=== PATIENT | male | born 1940 | race Caucasian/White ===

== ENCOUNTER 2017-10-04 15:09 | Inpatient (IN) ==
[2017-10-04] MEDS ORDERED: LEVOFLOXACIN INJ 750 MG in PREMIX 1 EACH IV STA (15:54)
[2017-10-04] MEDS ORDERED: ONDANSETRON 4 MG/2 ML VIAL IM STA (15:54)
[2017-10-04] MEDS ORDERED: methylPREDNISolone SOD SUC 125 MG/2 ML VIAL IV STA (15:54)
[2017-10-04] MEDS ORDERED: SODIUM CHLORIDE 0.9% 1,000 ML IV STA (15:54)
[2017-10-04] MEDS ORDERED: LOPERAMIDE 2 MG CAPSULE PO STA (15:57)
[2017-10-04] MEDS ORDERED: methylPREDNISolone SOD SUC 125 MG/2 ML VIAL ONE (16:14)
[2017-10-04] MEDS ORDERED: LOPERAMIDE 2 MG CAPSULE ONE (16:14)
[2017-10-04] MEDS ORDERED: ONDANSETRON 4 MG/2 ML VIAL ONE (16:14)
[2017-10-04 16:15] LABS: Basophils # 0.1 10*3/uL (0.0-0.2); Basophils % 0.3 % (0.0-0.8); Hematocrit 40.9 VOL% (42.0-52.0); Hemoglobin 14.1 GM/DL (14.0-18.0); Immature Granulocytes % 2.6 %; Immature Granulocytes Absolute 0.76 #; Lymphocytes # 0.4 10*3/uL (1.4-4.0); Lymphocytes % 1.5 % (21.2-54.2); Mean Corpuscular HGB Conc 34.5 GM/DL (32-36); Mean Corpuscular Hemoglobin 33 PG (27-34); Mean Corpuscular Volume 94.7 FL (87-102); Mean Platelet Volume 9.6 FL (9.6-12.0); Monocytes # 1.1 10*3/uL (0.11-0.8); Monocytes % 3.6 % (1.7-12.7); Neutrophils # 27.2 10*3/uL (1.4-7.4); Platelet Count 212 T/CUMM (130-400); Red Blood Count 4.32 MC/CUMM (3.8-5.5); Red Cell Distribution Width 13.1 % (9.3-17.3); White Blood Count 29.6 T/CUMM (4-12)
[2017-10-04] MEDS ORDERED: ONDANSETRON 4 MG/2 ML VIAL IV STA (16:22)
[2017-10-04 16:26] LABS: INR 1.1; PT Patient Result 11.6 SECS; Partial Thromboplastin Time 30.8 SECS (0-40)
[2017-10-04 16:44] LABS: Alanine Aminotransferase 20 U/L (16-61); Albumin 3.1 G/DL (3.4-5.0); Alkaline Phosphatase 64 U/L (45-117); Aspartate Amino Transferase 25 U/L (0-37); Blood Urea Nitrogen 39 MG/DL (7-18); Calcium 7.5 MG/DL (8.5-10.1); Free T4 (Free Thyroxine) 1.33 NG/DL (0.76-1.46); Glucose 127 MG/DL (74-106); Osmolality,Calculated 276.4 MOS/KG (273-304); Potassium 3.7 MMOL/L (3.5-5.1); Sodium 133 MMOL/L (136-145)
[2017-10-04] MEDS ORDERED: LEVOFLOXACIN INJ 150 ML IV ONE (16:44)
[2017-10-04 16:45] LABS: Troponin I Only 0.053 NG/ML (0.00-0.045)
[2017-10-04 17:05] LABS: Band Neutrophils 5 % (0-10); Lymphocytes 2 % (20-55); Segmented Neutrophils 91 % (50-85); Total Cells Counted 100
[2017-10-04 17:19] LABS: Apearance,Urine CLOUDY (Clear); Bilirubin,Urine Negative (Negative); Blood, Urine Moderate mg/dL (Negative); Glucose,Urine (UA) Negative (Negative); Hyaline Casts,Urine 1 /LPF (0-3); Ketones,Urine 5 mg/dL (Negative); Mucus,Urine Few /LPF (Occasional); Nitrite,Urine Negative (Negative); Protein,Urine 100 MG/DL; RBC,Urine 2 /HPF (0-4); Squamous Epithelial Cell,Urine Occasional /HPF (0-10); Urine Color Yellow (Yellow); Urine Specific Gravity 1.017 (1.001-1.035); Urine Urobilinogen < 2.0 EU/DL (0.2-1.0); WBC,Urine 3 /HPF (0-6)
[2017-10-04] MEDS ORDERED: ALBUTEROL 2.5 MG/3 ML NEB RESP TX PRN (17:41)
[2017-10-04] MEDS ORDERED: ZALEPLON 5 MG CAPSULE PO PRN (17:42)
[2017-10-04] MEDS ORDERED: PANTOPRAZOLE 40 MG VIAL IV STA (17:44)
[2017-10-04] MEDS ORDERED: AZTREONAM 2,000 MG in SYRINGE 1 EACH IV SCH (18:30)
[2017-10-04] MEDS ORDERED: SODIUM CHLORIDE 0.9% 2,250 ML IV ONE (18:30)
[2017-10-04] MEDS ORDERED: INFLUENZA VIRUS VACCINE 0.5 ML SYRINGE IM ONE (18:47)
[2017-10-04] MEDS ORDERED: PNEUMOCOCCAL VACCINE (13 VALENT) 0.5 ML SYRINGE IM ONE (18:47)
[2017-10-04] MEDS: ALBUTEROL/IPRATROPIUM 3 ML NEB RESP TX SCH (19:41)
[2017-10-04] MEDS ORDERED: VANCOMYCIN INJ 1,000 MG in SODIUM CHLORIDE 0.9% 250 ML IV SCH (20:30)
[2017-10-04] MEDS ORDERED: ALBUTEROL 2.5 MG/3 ML NEB RESP TX ONE (21:15)
[2017-10-04] MEDS ORDERED: MAGNESIUM SULF RIDER 1 GM in PREMIX 1 EACH IV ONE (21:15)
[2017-10-04] MEDS: SODIUM CHLORIDE 0.9% 1,000 ML IV SCH (21:27)
[2017-10-04] MEDS: methylPREDNISolone SOD SUC 125 MG/2 ML VIAL IV SCH (21:30)
[2017-10-04 21:40] LABS: ABG Base Excess -11.3 MMOL/L (-2.5-2.5); ABG HCO3 16.1 MMOL/L (20-26); ABG Oxygen Saturation 92.1 % (95-100); ABG PCO2 41.3 MM HG (35-48); ABG PO2 68.6 MM HG (80-95); ABG TCO2 17.3 MMOL/L (23-27); Allen Test Positive
[2017-10-04 21:44] LABS: ABG PH 7.208 (7.35-7.45)
[2017-10-04] MEDS: MONTELUKAST 10 MG TABLET PO SCH (21:44)
[2017-10-04] MEDS: ENOXAPARIN 40 MG/0.4 ML SYRINGE SUBCUT SCH (21:44)
[2017-10-04] MEDS: DOCUSATE SODIUM 100 MG CAPSULE PO SCH (21:44)
[2017-10-05] MEDS: ALBUTEROL/IPRATROPIUM 3 ML NEB RESP TX SCH ×4 (01:49→19:30)
[2017-10-05 04:07] LABS: Basophils # 0.1 10*3/uL (0.0-0.2); Basophils % 0.4 % (0.0-0.8); Hematocrit 38.6 VOL% (42.0-52.0); Hemoglobin 12.8 GM/DL (14.0-18.0); Immature Granulocytes % 9.9 %; Immature Granulocytes Absolute 2.24 #; Lymphocytes # 0.2 10*3/uL (1.4-4.0); Lymphocytes % 0.7 % (21.2-54.2); Mean Corpuscular HGB Conc 33.2 GM/DL (32-36); Mean Corpuscular Hemoglobin 33 PG (27-34); Mean Corpuscular Volume 98.5 FL (87-102); Mean Platelet Volume 10.4 FL (9.6-12.0); Monocytes # 0.5 10*3/uL (0.11-0.8); Neutrophils # 19.8 10*3/uL (1.4-7.4); Platelet Count 186 T/CUMM (130-400); Red Blood Count 3.92 MC/CUMM (3.8-5.5); Red Cell Distribution Width 13.4 % (9.3-17.3); White Blood Count 22.7 T/CUMM (4-12)
[2017-10-05 04:51] LABS: ABG Base Excess -12.2 MMOL/L (-2.5-2.5); ABG HCO3 16.9 MMOL/L (20-26); ABG Oxygen Saturation 93.7 % (95-100); ABG PCO2 51.2 MM HG (35-48); ABG PO2 75.7 MM HG (80-95); ABG TCO2 18.5 MMOL/L (23-27)
[2017-10-05] MEDS: SODIUM CHLORIDE 0.9% 1,000 ML IV SCH ×3 (04:54→13:41)
[2017-10-05] MEDS: methylPREDNISolone SOD SUC 125 MG/2 ML VIAL IV SCH ×4 (04:54→21:29)
[2017-10-05 04:55] LABS: ABG PH 7.136 (7.35-7.45)
[2017-10-05] MEDS ORDERED: SODIUM BICARBONATE 50 MEQ/50 ML SYRINGE IV ONE ×2 (04:59→05:00)
[2017-10-05 05:08] LABS: Albumin 2.3 G/DL (3.4-5.0); Bilirubin,Total 0.5 MG/DL (0.2-1.0); Calcium 6.9 MG/DL (8.5-10.1); Osmolality,Calculated 304.5 MOS/KG (273-304); Potassium 3.9 MMOL/L (3.5-5.1); Total Protein 4.8 G/DL (6.4-8.3)
[2017-10-05 05:24] LABS: Band Neutrophils 7 % (0-10); Burr Cells 1+; Hypochromasia Slight; Lymphocytes 1 % (20-55); Ovalocytes 1+; Platelet Estimate Normal; Segmented Neutrophils 91 % (50-85); Total Cells Counted 100
[2017-10-05] MEDS ORDERED: GLUCAGON 1 MG VIAL IM PRN (05:52)
[2017-10-05] MEDS ORDERED: DEXTROSE 50% 25 GM/50 ML VIAL IV PRN (05:52)
[2017-10-05] MEDS ORDERED: INSULIN REGULAR 100 UNIT/ML SUBCUT SCH (06:00)
[2017-10-05] MEDS ORDERED: INSULIN REGULAR 100 UNIT/ML SUBCUT ONE (08:41)
[2017-10-05] MEDS: INSULIN REGULAR 100 UNIT/ML SUBCUT SCH ×4 (08:43→20:35)
[2017-10-05] MEDS: DOCUSATE SODIUM 100 MG CAPSULE PO SCH ×2 (09:00→20:35)
[2017-10-05] MEDS: glipiZIDE 5 MG TABLET PO SCH (09:00)
[2017-10-05] MEDS: LINEZOLID INJ 600 MG in PREMIX 1 EACH IV SCH ×2 (09:00→20:40)
[2017-10-05 11:30] LABS: ABG Oxygen Saturation 99.1 % (95-100); ABG PCO2 56.3 MM HG (35-48); ABG TCO2 19.3 MMOL/L (23-27)
[2017-10-05] MEDS: THEOPHYLLINE ER (24 HR) 400 MG TABLET PO SCH (12:41)
[2017-10-05] MEDS: MEROPENEM 1,000 MG in SYRINGE 1 EACH IV SCH (12:45)
[2017-10-05] MEDS: ENOXAPARIN 40 MG/0.4 ML SYRINGE SUBCUT SCH (20:35)
[2017-10-05] MEDS: MONTELUKAST 10 MG TABLET PO SCH (20:35)
[2017-10-06] MEDS: MEROPENEM 1,000 MG in SYRINGE 1 EACH IV SCH ×2 (00:14→13:06)
[2017-10-06] MEDS: INSULIN REGULAR 100 UNIT/ML SUBCUT SCH ×7 (00:15→23:50)
[2017-10-06] MEDS: SODIUM CHLORIDE 0.9% 1,000 ML IV SCH ×3 (00:15→10:27)
[2017-10-06] MEDS: ALBUTEROL/IPRATROPIUM 3 ML NEB RESP TX SCH ×7 (00:27→23:53)
[2017-10-06 03:36] LABS: ABG Base Excess -6.6 MMOL/L (-2.5-2.5); ABG HCO3 20.4 MMOL/L (20-26); ABG Oxygen Saturation 95.9 % (95-100); ABG PCO2 46.3 MM HG (35-48); ABG PH 7.261 (7.35-7.45); ABG PO2 82.7 MM HG (80-95); ABG TCO2 21.8 MMOL/L (23-27); Allen Test Positive
[2017-10-06] MEDS: methylPREDNISolone SOD SUC 125 MG/2 ML VIAL IV SCH ×4 (04:28→22:36)
[2017-10-06 05:22] LABS: Basophils # 0.1 10*3/uL (0.0-0.2); Basophils % 0.2 % (0.0-0.8); Hematocrit 35.4 VOL% (42.0-52.0); Hemoglobin 11.7 GM/DL (14.0-18.0); Immature Granulocytes Absolute 0.21 #; Lymphocytes # 0.2 10*3/uL (1.4-4.0); Mean Corpuscular HGB Conc 33.1 GM/DL (32-36); Mean Corpuscular Hemoglobin 32 PG (27-34); Mean Corpuscular Volume 97.5 FL (87-102); Mean Platelet Volume 10.4 FL (9.6-12.0); Monocytes # 0.6 10*3/uL (0.11-0.8); Monocytes % 2.6 % (1.7-12.7); Neutrophils # 20.5 10*3/uL (1.4-7.4); Neutrophils % 95.2 % (38.7-73.9); Platelet Count 163 T/CUMM (130-400); Red Blood Count 3.63 MC/CUMM (3.8-5.5); Red Cell Distribution Width 13.7 % (9.3-17.3); White Blood Count 21.6 T/CUMM (4-12)
[2017-10-06 05:44] LABS: Band Neutrophils 5 % (0-10); Lymphocytes 1 % (20-55); Nucleated Red Blood Cells 1 (0-5); Segmented Neutrophils 93 % (50-85); Total Cells Counted 100
[2017-10-06 05:45] LABS: Burr Cells Slight; Giant Platelets Few; Hypochromasia 1+; Ovalocytes Slight; Platelet Estimate Normal
[2017-10-06] MEDS ORDERED: DILTIAZEM 50 MG/10 ML VIAL IV ONE ×2 (05:56→06:06)
[2017-10-06] MEDS ORDERED: DILTIAZEM 100 MG VIAL.ADD IV ONE ×2 (05:58→06:02)
[2017-10-06 06:00] LABS: Calcium 7.4 MG/DL (8.5-10.1); Magnesium 2.3 MG/DL (1.8-2.4); Osmolality,Calculated 298.6 MOS/KG (273-304); Potassium 3.5 MMOL/L (3.5-5.1)
[2017-10-06] MEDS: DILTIAZEM INJ 100 MG in SODIUM CHLORIDE 0.9% 100 ML IV SCH ×3 (06:06→22:15)
[2017-10-06] MEDS ORDERED: DIGOXIN 0.5 MG/2 ML AMP IV ONE ×2 (06:35→06:42)
[2017-10-06] MEDS ORDERED: MEPERIDINE 50 MG/1 ML VIAL ONE (08:31)
[2017-10-06] MEDS ORDERED: MIDAZOLAM 2 MG/2 ML VIAL ONE (08:31)
[2017-10-06] MEDS ORDERED: METOPROLOL TARTRATE 5 MG/5 ML VIAL IV ONE ×3 (08:32→09:41)
[2017-10-06] MEDS: ENOXAPARIN 80 MG/0.8 ML SYRINGE SUBCUT SCH ×2 (08:44→20:57)
[2017-10-06 09:15] LABS: Risk Ratio 2.53; VLDL CHOLESTEROL 16.4 MG/DL
[2017-10-06] MEDS ORDERED: MEPERIDINE 50 MG/1 ML VIAL IV ONE (09:41)
[2017-10-06] MEDS ORDERED: MIDAZOLAM 2 MG/2 ML VIAL IV ONE (09:41)
[2017-10-06] MEDS: DOCUSATE SODIUM 100 MG CAPSULE PO SCH ×2 (09:44→20:57)
[2017-10-06] MEDS: glipiZIDE 5 MG TABLET PO SCH (09:44)
[2017-10-06] MEDS: LINEZOLID INJ 600 MG in PREMIX 1 EACH IV SCH ×2 (09:54→20:56)
[2017-10-06] MEDS: THEOPHYLLINE ER (24 HR) 400 MG TABLET PO SCH (11:14)
[2017-10-06] MEDS ORDERED: LEVOFLOXACIN INJ 750 MG in PREMIX 1 EACH IV SCH (17:00)
[2017-10-06] MEDS: MONTELUKAST 10 MG TABLET PO SCH (20:57)
[2017-10-06] MEDS: ATORVASTATIN 10 MG TABLET PO SCH (20:57)
[2017-10-07] MEDS: MEROPENEM 1,000 MG in SYRINGE 1 EACH IV SCH ×2 (02:08→12:22)
[2017-10-07] MEDS: INSULIN REGULAR 100 UNIT/ML SUBCUT SCH ×5 (04:00→21:04)
[2017-10-07] MEDS: ALBUTEROL/IPRATROPIUM 3 ML NEB RESP TX SCH ×6 (04:12→23:20)
[2017-10-07] MEDS: methylPREDNISolone SOD SUC 125 MG/2 ML VIAL IV SCH ×4 (04:12→22:13)
[2017-10-07 05:11] LABS: Basophils # 0.1 10*3/uL (0.0-0.2); Basophils % 0.2 % (0.0-0.8); Hematocrit 36.9 VOL% (42.0-52.0); Hemoglobin 12.3 GM/DL (14.0-18.0); Immature Granulocytes % 0.7 %; Immature Granulocytes Absolute 0.18 #; Lymphocytes # 0.2 10*3/uL (1.4-4.0); Lymphocytes % 0.9 % (21.2-54.2); Mean Corpuscular HGB Conc 33.3 GM/DL (32-36); Mean Corpuscular Hemoglobin 32 PG (27-34); Mean Corpuscular Volume 96.9 FL (87-102); Mean Platelet Volume 10.5 FL (9.6-12.0); Monocytes # 0.3 10*3/uL (0.11-0.8); Monocytes % 1.3 % (1.7-12.7); NRBC # 0.05 10*3/uL; Neutrophils # 23.9 10*3/uL (1.4-7.4); Neutrophils % 96.9 % (38.7-73.9); Platelet Count 231 T/CUMM (130-400); Red Blood Count 3.81 MC/CUMM (3.8-5.5); Red Cell Distribution Width 13.9 % (9.3-17.3); White Blood Count 24.7 T/CUMM (4-12)
[2017-10-07 05:40] LABS: Magnesium 2.5 MG/DL (1.8-2.4); Osmolality,Calculated 291.3 MOS/KG (273-304); Potassium 3.9 MMOL/L (3.5-5.1)
[2017-10-07 05:59] LABS: Band Neutrophils 1 % (0-10); Hypochromasia Slight; Lymphocytes 1 % (20-55); Ovalocytes Slight; Platelet Estimate Adequate; Segmented Neutrophils 97 % (50-85); Total Cells Counted 100
[2017-10-07 06:00] LABS: Burr Cells Slight; Giant Platelets Few
[2017-10-07] MEDS ORDERED: MEPERIDINE 50 MG/1 ML VIAL IM ONE (07:00)
[2017-10-07] MEDS ORDERED: PROMETHAZINE 25 MG/1 ML VIAL IM ONE (07:00)
[2017-10-07] MEDS ORDERED: LIDOCAINE 1% 20 ML VIAL MISC INJ ONE (07:30)
[2017-10-07] MEDS ORDERED: LIDOCAINE 2% VISCOUS 100 ML BOTTLE SWISH/SPIT ONE (07:30)
[2017-10-07] MEDS ORDERED: MIDAZOLAM 2 MG/2 ML VIAL IV ONE ×2 (07:30→09:35)
[2017-10-07] MEDS ORDERED: LIDOCAINE 2% 20 ML VIAL RESP TX ONE (07:30)
[2017-10-07] MEDS: LINEZOLID INJ 600 MG in PREMIX 1 EACH IV SCH ×2 (09:30→21:04)
[2017-10-07] MEDS: ENOXAPARIN 80 MG/0.8 ML SYRINGE SUBCUT SCH ×2 (09:30→21:03)
[2017-10-07] MEDS: DOCUSATE SODIUM 100 MG CAPSULE PO SCH ×2 (09:45→21:03)
[2017-10-07] MEDS: glipiZIDE 5 MG TABLET PO SCH (09:45)
[2017-10-07] MEDS ORDERED: DILTIAZEM 30 MG TABLET PO SCH (10:23)
[2017-10-07] MEDS ORDERED: DIGOXIN 0.5 MG/2 ML AMP IV ONE (10:24)
[2017-10-07] MEDS: NEBIVOLOL 5 MG TABLET PO SCH ×2 (10:54→21:02)
[2017-10-07] MEDS: DILTIAZEM CD 120 MG CAPSULE PO SCH (10:55)
[2017-10-07] MEDS: DILTIAZEM INJ 100 MG in SODIUM CHLORIDE 0.9% 100 ML IV SCH (10:56)
[2017-10-07] MEDS: THEOPHYLLINE ER (24 HR) 400 MG TABLET PO SCH (11:00)
[2017-10-07] MEDS: ATORVASTATIN 10 MG TABLET PO SCH (21:03)
[2017-10-07] MEDS: MONTELUKAST 10 MG TABLET PO SCH (21:03)
[2017-10-08] MEDS: MEROPENEM 1,000 MG in SYRINGE 1 EACH IV SCH ×2 (03:02→13:41)
[2017-10-08] MEDS: ALBUTEROL/IPRATROPIUM 3 ML NEB RESP TX SCH ×6 (03:25→23:35)
[2017-10-08] MEDS: methylPREDNISolone SOD SUC 125 MG/2 ML VIAL IV SCH ×4 (04:30→21:59)
[2017-10-08 05:06] LABS: Basophils % 0.2 % (0.0-0.8); Hematocrit 30.8 VOL% (42.0-52.0); Immature Granulocytes % 0.9 %; Immature Granulocytes Absolute 0.11 #; Lymphocytes # 0.2 10*3/uL (1.4-4.0); Lymphocytes % 1.7 % (21.2-54.2); Mean Corpuscular HGB Conc 33.1 GM/DL (32-36); Mean Corpuscular Hemoglobin 32 PG (27-34); Mean Corpuscular Volume 96.6 FL (87-102); Mean Platelet Volume 10.1 FL (9.6-12.0); Monocytes # 0.3 10*3/uL (0.11-0.8); Monocytes % 2.5 % (1.7-12.7); NRBC # 0.02 10*3/uL; Neutrophils % 94.7 % (38.7-73.9); Red Blood Count 3.19 MC/CUMM (3.8-5.5); Red Cell Distribution Width 13.7 % (9.3-17.3)
[2017-10-08 05:13] LABS: Hemoglobin 10.2 GM/DL (14.0-18.0); Platelet Count 182 T/CUMM (130-400); White Blood Count 11.6 T/CUMM (4-12)
[2017-10-08 05:29] LABS: Band Neutrophils 1 % (0-10); Hypochromasia 1+; Lymphocytes 1 % (20-55); Ovalocytes Slight; Platelet Estimate Normal; Segmented Neutrophils 97 % (50-85); Total Cells Counted 100
[2017-10-08 05:32] LABS: Calcium 7.7 MG/DL (8.5-10.1); Magnesium 2.6 MG/DL (1.8-2.4); Potassium 4.4 MMOL/L (3.5-5.1)
[2017-10-08] MEDS: DILTIAZEM INJ 100 MG in SODIUM CHLORIDE 0.9% 100 ML IV SCH (06:36)
[2017-10-08] MEDS: ENOXAPARIN 80 MG/0.8 ML SYRINGE SUBCUT SCH (09:00)
[2017-10-08] MEDS: INSULIN REGULAR 100 UNIT/ML SUBCUT SCH ×4 (09:00→20:52)
[2017-10-08] MEDS: NEBIVOLOL 5 MG TABLET PO SCH (09:01)
[2017-10-08] MEDS: glipiZIDE 5 MG TABLET PO SCH (09:02)
[2017-10-08] MEDS: DOCUSATE SODIUM 100 MG CAPSULE PO SCH ×2 (09:02→20:53)
[2017-10-08] MEDS: LINEZOLID INJ 600 MG in PREMIX 1 EACH IV SCH (09:02)
[2017-10-08] MEDS: DILTIAZEM CD 120 MG CAPSULE PO SCH (09:02)
[2017-10-08] MEDS: THEOPHYLLINE ER (24 HR) 400 MG TABLET PO SCH (11:14)
[2017-10-08] MEDS: LEVOFLOXACIN INJ 750 MG in PREMIX 1 EACH IV SCH (11:14)
[2017-10-08] MEDS: ASPIRIN EC 81 MG TABLET PO SCH (13:41)
[2017-10-08] MEDS: APIXABAN 5 MG TABLET PO SCH (20:53)
[2017-10-08] MEDS: MONTELUKAST 10 MG TABLET PO SCH (20:54)
[2017-10-08] MEDS: ATORVASTATIN 10 MG TABLET PO SCH (20:54)
[2017-10-09] MEDS: MEROPENEM 1,000 MG in SYRINGE 1 EACH IV SCH ×2 (02:24→13:08)
[2017-10-09] MEDS: ALBUTEROL/IPRATROPIUM 3 ML NEB RESP TX SCH ×6 (02:45→23:26)
[2017-10-09] MEDS: methylPREDNISolone SOD SUC 125 MG/2 ML VIAL IV SCH ×5 (04:34→21:21)
[2017-10-09 04:37] LABS: Basophils % 0.1 % (0.0-0.8); Hemoglobin 9.4 GM/DL (14.0-18.0); Immature Granulocytes % 1.7 %; Immature Granulocytes Absolute 0.13 #; Lymphocytes # 0.2 10*3/uL (1.4-4.0); Lymphocytes % 2.7 % (21.2-54.2); Mean Corpuscular HGB Conc 33.6 GM/DL (32-36); Mean Corpuscular Hemoglobin 32 PG (27-34); Mean Corpuscular Volume 96.2 FL (87-102); Mean Platelet Volume 10.4 FL (9.6-12.0); Monocytes # 0.2 10*3/uL (0.11-0.8); Monocytes % 2.5 % (1.7-12.7); Neutrophils # 7.1 10*3/uL (1.4-7.4); Platelet Count 186 T/CUMM (130-400); Red Blood Count 2.91 MC/CUMM (3.8-5.5); Red Cell Distribution Width 13.7 % (9.3-17.3); White Blood Count 7.7 T/CUMM (4-12)
[2017-10-09 05:28] LABS: Band Neutrophils 1 % (0-10); Giant Platelets Few; Hypochromasia 1+; Lymphocytes 2 % (20-55); Ovalocytes Slight; Platelet Estimate Normal; Segmented Neutrophils 96 % (50-85); Total Cells Counted 100
[2017-10-09 05:45] LABS: Calcium 7.5 MG/DL (8.5-10.1); Magnesium 2.4 MG/DL (1.8-2.4); Osmolality,Calculated 303.8 MOS/KG (273-304); Potassium 4.7 MMOL/L (3.5-5.1)
[2017-10-09 07:24] LABS: ABG PH 7.183 (7.35-7.45)
[2017-10-09] MEDS: DILTIAZEM CD 120 MG CAPSULE PO SCH (08:23)
[2017-10-09] MEDS: APIXABAN 5 MG TABLET PO SCH ×2 (08:24→21:20)
[2017-10-09] MEDS: glipiZIDE 5 MG TABLET PO SCH (08:24)
[2017-10-09] MEDS: NEBIVOLOL 5 MG TABLET PO SCH (08:24)
[2017-10-09] MEDS: INSULIN REGULAR 100 UNIT/ML SUBCUT SCH ×4 (08:24→21:21)
[2017-10-09] MEDS: ASPIRIN EC 81 MG TABLET PO SCH (08:24)
[2017-10-09] MEDS: DOCUSATE SODIUM 100 MG CAPSULE PO SCH ×2 (08:24→21:20)
[2017-10-09] MEDS: LEVOFLOXACIN INJ 750 MG in PREMIX 1 EACH IV SCH ×2 (08:25→09:03)
[2017-10-09] MEDS ORDERED: DILTIAZEM CD 180 MG CAPSULE PO SCH (09:00)
[2017-10-09] MEDS: THEOPHYLLINE ER (24 HR) 400 MG TABLET PO SCH (12:08)
[2017-10-09] MEDS: ATORVASTATIN 10 MG TABLET PO SCH (21:20)
[2017-10-09] MEDS: MONTELUKAST 10 MG TABLET PO SCH (21:20)
[2017-10-10] MEDS: MEROPENEM 1,000 MG in SYRINGE 1 EACH IV SCH (01:25)
[2017-10-10] MEDS: ALBUTEROL/IPRATROPIUM 3 ML NEB RESP TX SCH ×3 (02:52→11:59)
[2017-10-10] MEDS: methylPREDNISolone SOD SUC 125 MG/2 ML VIAL IV SCH ×2 (04:08→09:14)
[2017-10-10 05:38] LABS: Basophils % 0.1 % (0.0-0.8); Hematocrit 27.5 VOL% (42.0-52.0); Hemoglobin 9.2 GM/DL (14.0-18.0); Immature Granulocytes % 1.4 %; Lymphocytes # 0.3 10*3/uL (1.4-4.0); Lymphocytes % 3.5 % (21.2-54.2); Mean Corpuscular HGB Conc 33.5 GM/DL (32-36); Mean Corpuscular Hemoglobin 32 PG (27-34); Mean Corpuscular Volume 95.5 FL (87-102); Mean Platelet Volume 9.8 FL (9.6-12.0); Monocytes # 0.3 10*3/uL (0.11-0.8); Monocytes % 3.5 % (1.7-12.7); Neutrophils # 6.4 10*3/uL (1.4-7.4); Neutrophils % 91.5 % (38.7-73.9); Platelet Count 196 T/CUMM (130-400); Red Blood Count 2.88 MC/CUMM (3.8-5.5); Red Cell Distribution Width 13.4 % (9.3-17.3); White Blood Count 7.1 T/CUMM (4-12)
[2017-10-10 06:14] LABS: Calcium 7.6 MG/DL (8.5-10.1); Magnesium 2.5 MG/DL (1.8-2.4); Osmolality,Calculated 302.1 MOS/KG (273-304); Potassium 4.5 MMOL/L (3.5-5.1)
[2017-10-10 06:17] LABS: Calcium 7.4 MG/DL (8.5-10.1); Potassium 4.5 MMOL/L (3.5-5.1)
[2017-10-10 08:29] VITALS: BP 144/68
[2017-10-10] MEDS: NEBIVOLOL 5 MG TABLET PO SCH (09:13)
[2017-10-10] MEDS: APIXABAN 5 MG TABLET PO SCH (09:14)
[2017-10-10] MEDS: DILTIAZEM CD 120 MG CAPSULE PO SCH (09:14)
[2017-10-10] MEDS: DOCUSATE SODIUM 100 MG CAPSULE PO SCH (09:14)
[2017-10-10] MEDS: ASPIRIN EC 81 MG TABLET PO SCH (09:14)
[2017-10-10] MEDS: glipiZIDE 5 MG TABLET PO SCH (09:14)
[2017-10-10] MEDS: INSULIN REGULAR 100 UNIT/ML SUBCUT SCH (09:14)
[2017-10-10] MEDS: LEVOFLOXACIN INJ 750 MG in PREMIX 1 EACH IV SCH (09:15)
[2017-10-10] MEDS: THEOPHYLLINE ER (24 HR) 400 MG TABLET PO SCH (12:00)
== END 2017-10-10 12:49 | disposition home or self-care (01) | DRG 871 ==
LOC: N.ED 15:09 → N.EDINP 17:08 → SUATTDRO 17:08 → N.ICU 18:45 → N.TELEN 10-07 14:46
PROVIDERS: ADMIT Internal Medicine Infectious Disease; ATTEND Internal Medicine

== ENCOUNTER 2018-12-31 17:49 | Inpatient (IN) ==
[2018-12-31] MEDS ORDERED: SODIUM CHLORIDE 0.9% 1,000 ML IV STA (19:04)
[2018-12-31 19:45] LABS: Basophils % 0.3 % (0.0-0.8); Eosinophils # 0.5 10*3/uL (0.0-0.87); Eosinophils % 4.4 % (0.00-10.9); Hematocrit 34.8 VOL% (42.0-52.0); Hemoglobin 11.1 GM/DL (14.0-18.0); Immature Granulocytes % 0.9 %; Lymphocytes # 0.6 10*3/uL (1.4-4.0); Lymphocytes % 5.1 % (21.2-54.2); Mean Corpuscular HGB Conc 31.9 GM/DL (32-36); Mean Corpuscular Hemoglobin 32 PG (27-34); Mean Corpuscular Volume 99.4 FL (87-102); Mean Platelet Volume 9.3 FL (9.6-12.0); Monocytes % 8.4 % (1.7-12.7); Neutrophils # 9.3 10*3/uL (1.4-7.4); Neutrophils % 80.9 % (38.7-73.9); Platelet Count 320 T/CUMM (130-400); Red Cell Distribution Width 12.9 % (9.3-17.3); White Blood Count 11.5 T/CUMM (4-12)
[2018-12-31 19:51] LABS: Alanine Aminotransferase 19 U/L (16-61); Albumin 3.2 G/DL (3.4-5.0); Alkaline Phosphatase 105 U/L (45-117); Aspartate Amino Transferase 13 U/L (0-37); Bilirubin,Total < 0.39 MG/DL (0.2-1.0); Blood Urea Nitrogen 32 MG/DL (7-18); Calcium 8.3 MG/DL (8.5-10.1); Glucose 128 MG/DL (74-106); Osmolality,Calculated 281.8 MOS/KG (273-304); Potassium 4.3 MMOL/L (3.5-5.1); Sodium 137 MMOL/L (136-145); Total Protein 6.1 G/DL (6.4-8.3)
[2018-12-31 20:02] LABS: Apearance,Urine CLEAR (Clear); Bilirubin,Urine Negative (Negative); Blood, Urine Negative (Negative); Glucose,Urine (UA) 50 mg/dL (Negative); Ketones,Urine Negative (Negative); Mucus,Urine Occasional /LPF (Occasional); Nitrite,Urine Negative (Negative); Protein,Urine Negative; RBC,Urine 1 /HPF (0-4); Squamous Epithelial Cell,Urine Occasional /HPF (0-10); Urine Color Yellow (Yellow); Urine Urobilinogen < 2.0 EU/DL (0.2-1.0); WBC,Urine 2 /HPF (0-6)
[2018-12-31] MEDS ORDERED: cefTRIAXone 1,000 MG in SODIUM CHLORIDE 0.9% 100 ML IV STA (20:49)
[2018-12-31] MEDS ORDERED: AZITHROMYCIN 250 MG TABLET PO STA (20:49)
[2018-12-31] MEDS ORDERED: DEXTROSE 50% 25 GM/50 ML SYRINGE IV PRN (21:47)
[2018-12-31] MEDS ORDERED: ONDANSETRON 4 MG/2 ML VIAL IV PRN (21:47)
[2018-12-31] MEDS ORDERED: GLUCAGON 1 MG VIAL IM PRN (21:47)
[2018-12-31] MEDS ORDERED: METHOCARBAMOL 500 MG TABLET PO PRN (21:53)
[2018-12-31] MEDS ORDERED: LEVOFLOXACIN INJ 750 MG in PREMIX 1 EACH IV SCH (22:00)
[2018-12-31] MEDS: INSULIN REGULAR 100 UNIT/ML SUBCUT SCH (23:03)
[2018-12-31] MEDS: PIPERACILLIN/TAZOBACTAM 3,375 MG in SODIUM CHLORIDE 0.9% 100 ML IV SCH (23:16)
[2018-12-31] MEDS: APIXABAN 5 MG TABLET PO SCH (23:17)
[2019-01-01] MEDS: ALBUTEROL/IPRATROPIUM 3 ML NEB RESP TX SCH ×4 (01:55→19:36)
[2019-01-01] MEDS: PIPERACILLIN/TAZOBACTAM 3,375 MG in SODIUM CHLORIDE 0.9% 100 ML IV SCH ×3 (06:06→20:47)
[2019-01-01 07:02] LABS: Basophils # 0.1 10*3/uL (0.0-0.2); Basophils % 0.5 % (0.0-0.8); Eosinophils # 0.5 10*3/uL (0.0-0.87); Eosinophils % 3.5 % (0.00-10.9); Hematocrit 38.3 VOL% (42.0-52.0); Immature Granulocytes % 0.9 %; Immature Granulocytes Absolute 0.13 #; Lymphocytes # 1.2 10*3/uL (1.4-4.0); Lymphocytes % 8.2 % (21.2-54.2); Mean Corpuscular HGB Conc 31.3 GM/DL (32-36); Mean Corpuscular Hemoglobin 32 PG (27-34); Mean Corpuscular Volume 101.3 FL (87-102); Mean Platelet Volume 9.2 FL (9.6-12.0); Monocytes # 1.1 10*3/uL (0.11-0.8); Monocytes % 7.4 % (1.7-12.7); Neutrophils # 11.7 10*3/uL (1.4-7.4); Neutrophils % 79.5 % (38.7-73.9); Platelet Count 371 T/CUMM (130-400); Red Blood Count 3.78 MC/CUMM (3.8-5.5); Red Cell Distribution Width 12.8 % (9.3-17.3); White Blood Count 14.7 T/CUMM (4-12)
[2019-01-01 07:38] LABS: Albumin 3.2 G/DL (3.4-5.0); Bilirubin,Total 0.4 MG/DL (0.2-1.0); Calcium 8.5 MG/DL (8.5-10.1); Potassium 4.4 MMOL/L (3.5-5.1); Total Protein 6.6 G/DL (6.4-8.3)
[2019-01-01] MEDS: metFORMIN 500 MG TABLET PO SCH ×2 (09:41→17:18)
[2019-01-01] MEDS: ATORVASTATIN 10 MG TABLET PO SCH (09:41)
[2019-01-01] MEDS: PANTOPRAZOLE 40 MG TABLET PO SCH (09:41)
[2019-01-01] MEDS: INSULIN REGULAR 100 UNIT/ML SUBCUT SCH ×4 (09:41→22:14)
[2019-01-01] MEDS: DILTIAZEM CD 180 MG CAPSULE PO SCH (09:42)
[2019-01-01] MEDS: glipiZIDE 5 MG TABLET PO SCH (09:42)
[2019-01-01] MEDS: APIXABAN 5 MG TABLET PO SCH ×2 (09:42→20:47)
[2019-01-01] MEDS: acetaZOLAMIDE 250 MG TABLET PO SCH ×2 (09:43→20:46)
[2019-01-01] MEDS: LEVOFLOXACIN INJ 750 MG in PREMIX 1 EACH IV SCH (09:43)
[2019-01-01] MEDS: THEOPHYLLINE ER (24 HR) 200 MG CAPSULE PO SCH (13:19)
[2019-01-01] MEDS: ACETAMINOPHEN 325 MG TABLET PO PRN (17:18)
[2019-01-01] MEDS: CYCLOBENZAPRINE 10 MG TABLET PO SCH ×2 (17:18→20:46)
[2019-01-01] MEDS ORDERED: LEVALBUTEROL 0.31 MG/3 ML NEB RESP TX ONE (18:59)
[2019-01-01] MEDS: NAPROXEN 250 MG TABLET PO SCH (20:46)
[2019-01-02] MEDS: ALBUTEROL/IPRATROPIUM 3 ML NEB RESP TX SCH ×4 (01:25→19:12)
[2019-01-02] MEDS: PIPERACILLIN/TAZOBACTAM 3,375 MG in SODIUM CHLORIDE 0.9% 100 ML IV SCH ×3 (05:15→20:27)
[2019-01-02 05:45] LABS: Basophils % 0.2 % (0.0-0.8); Eosinophils # 0.1 10*3/uL (0.0-0.87); Eosinophils % 0.8 % (0.00-10.9); Hematocrit 35.8 VOL% (42.0-52.0); Hemoglobin 11.3 GM/DL (14.0-18.0); Immature Granulocytes % 0.5 %; Immature Granulocytes Absolute 0.06 #; Lymphocytes # 0.7 10*3/uL (1.4-4.0); Lymphocytes % 5.1 % (21.2-54.2); Mean Corpuscular HGB Conc 31.6 GM/DL (32-36); Mean Corpuscular Hemoglobin 32 PG (27-34); Mean Corpuscular Volume 100.6 FL (87-102); Mean Platelet Volume 9.2 FL (9.6-12.0); Monocytes % 7.6 % (1.7-12.7); Neutrophils # 11.2 10*3/uL (1.4-7.4); Neutrophils % 85.8 % (38.7-73.9); Platelet Count 328 T/CUMM (130-400); Red Blood Count 3.56 MC/CUMM (3.8-5.5); Red Cell Distribution Width 12.9 % (9.3-17.3)
[2019-01-02 06:10] LABS: % Iron Saturation 17.1 % (18-50); Ferritin 19.5 ng/ml (26-388)
[2019-01-02 06:19] LABS: Folate > 24.0 NG/ML (5.4-24.0); Vitamin B12 1180 PG/ML (211-911)
[2019-01-02] MEDS: INSULIN REGULAR 100 UNIT/ML SUBCUT SCH ×4 (07:29→23:11)
[2019-01-02] MEDS: glipiZIDE 5 MG TABLET PO SCH (07:44)
[2019-01-02] MEDS: metFORMIN 500 MG TABLET PO SCH ×2 (07:44→16:49)
[2019-01-02 08:25] LABS: Sedimentation Rate-Westergren 37 MM/HR (0-20)
[2019-01-02] MEDS: LEVOFLOXACIN INJ 750 MG in PREMIX 1 EACH IV SCH (09:28)
[2019-01-02] MEDS: CYCLOBENZAPRINE 10 MG TABLET PO SCH ×3 (09:29→20:28)
[2019-01-02] MEDS: NAPROXEN 250 MG TABLET PO SCH ×2 (09:29→20:28)
[2019-01-02] MEDS: PANTOPRAZOLE 40 MG TABLET PO SCH (09:29)
[2019-01-02] MEDS: APIXABAN 5 MG TABLET PO SCH ×2 (09:30→20:28)
[2019-01-02] MEDS: DILTIAZEM CD 180 MG CAPSULE PO SCH (09:30)
[2019-01-02] MEDS: ATORVASTATIN 10 MG TABLET PO SCH (09:30)
[2019-01-02] MEDS: MULTIVITAMIN (BEROCCA) TABLET PO SCH (09:30)
[2019-01-02] MEDS: acetaZOLAMIDE 250 MG TABLET PO SCH ×2 (09:31→20:28)
[2019-01-02] MEDS: THEOPHYLLINE ER (24 HR) 200 MG CAPSULE PO SCH (11:53)
[2019-01-02] MEDS: methylPREDNISolone SOD SUC 40 MG/1 ML VIAL IV SCH ×2 (11:53→22:28)
[2019-01-02] MEDS: FLUCONAZOLE INJ 100 MG in IV BAG 1 EACH IV SCH (13:34)
[2019-01-02] MEDS: ACETAMINOPHEN 325 MG TABLET PO PRN (18:05)
[2019-01-03] MEDS: ALBUTEROL/IPRATROPIUM 3 ML NEB RESP TX SCH ×4 (00:27→19:53)
[2019-01-03] MEDS: PIPERACILLIN/TAZOBACTAM 3,375 MG in SODIUM CHLORIDE 0.9% 100 ML IV SCH ×2 (05:15→14:09)
[2019-01-03] MEDS: methylPREDNISolone SOD SUC 40 MG/1 ML VIAL IV SCH (06:42)
[2019-01-03] MEDS: MULTIVITAMIN (BEROCCA) TABLET PO SCH (09:42)
[2019-01-03] MEDS: glipiZIDE 5 MG TABLET PO SCH (09:42)
[2019-01-03] MEDS: metFORMIN 500 MG TABLET PO SCH ×2 (09:42→17:48)
[2019-01-03] MEDS: APIXABAN 5 MG TABLET PO SCH ×2 (09:42→20:29)
[2019-01-03] MEDS: PANTOPRAZOLE 40 MG TABLET PO SCH (09:42)
[2019-01-03] MEDS: DILTIAZEM CD 180 MG CAPSULE PO SCH (09:43)
[2019-01-03] MEDS: NAPROXEN 250 MG TABLET PO SCH ×2 (09:43→20:28)
[2019-01-03] MEDS: CYCLOBENZAPRINE 10 MG TABLET PO SCH ×3 (09:43→20:29)
[2019-01-03] MEDS: acetaZOLAMIDE 250 MG TABLET PO SCH ×2 (09:47→20:28)
[2019-01-03] MEDS: INSULIN REGULAR 100 UNIT/ML SUBCUT SCH ×4 (09:48→21:30)
[2019-01-03] MEDS: THEOPHYLLINE ER (24 HR) 200 MG CAPSULE PO SCH (12:59)
[2019-01-03] MEDS: FLUCONAZOLE INJ 100 MG in IV BAG 1 EACH IV SCH (12:59)
[2019-01-03] MEDS: MEROPENEM 500 MG in SODIUM CHLORIDE 0.9% 100 ML IV SCH (15:10)
[2019-01-03] MEDS: VANCOMYCIN INJ 1,250 MG in SODIUM CHLORIDE 0.9% 250 ML IV SCH (18:38)
[2019-01-04] MEDS: ALBUTEROL/IPRATROPIUM 3 ML NEB RESP TX SCH ×4 (00:12→19:12)
[2019-01-04] MEDS: MEROPENEM 500 MG in SODIUM CHLORIDE 0.9% 100 ML IV SCH ×2 (02:35→16:05)
[2019-01-04 05:28] LABS: Basophils % 0.1 % (0.0-0.8); Eosinophils % 0.1 % (0.00-10.9); Hematocrit 31.5 VOL% (42.0-52.0); Hemoglobin 9.7 GM/DL (14.0-18.0); Immature Granulocytes % 0.9 %; Immature Granulocytes Absolute 0.16 #; Lymphocytes # 0.4 10*3/uL (1.4-4.0); Lymphocytes % 2.1 % (21.2-54.2); Mean Corpuscular HGB Conc 30.8 GM/DL (32-36); Mean Corpuscular Hemoglobin 32 PG (27-34); Mean Corpuscular Volume 102.6 FL (87-102); Mean Platelet Volume 9.6 FL (9.6-12.0); Monocytes # 0.9 10*3/uL (0.11-0.8); Monocytes % 4.8 % (1.7-12.7); Neutrophils # 16.6 10*3/uL (1.4-7.4); Platelet Count 328 T/CUMM (130-400); Red Blood Count 3.07 MC/CUMM (3.8-5.5); Red Cell Distribution Width 13.3 % (9.3-17.3); White Blood Count 18.1 T/CUMM (4-12)
[2019-01-04 05:38] LABS: Osmolality,Calculated 292.4 MOS/KG (273-304); Potassium 4.4 MMOL/L (3.5-5.1)
[2019-01-04 05:51] LABS: Albumin 2.6 G/DL (3.4-5.0); Bilirubin,Total 0.4 MG/DL (0.2-1.0); Osmolality,Calculated 291.3 MOS/KG (273-304); Potassium 4.2 MMOL/L (3.5-5.1); Total Protein 5.4 G/DL (6.4-8.3)
[2019-01-04 06:01] LABS: Lymphocytes 3 % (20-55); Macrocytosis Slight; Segmented Neutrophils 93 % (50-85); Total Cells Counted 100
[2019-01-04 06:02] LABS: Platelet Estimate Normal
[2019-01-04] MEDS: INSULIN REGULAR 100 UNIT/ML SUBCUT SCH ×4 (10:02→22:00)
[2019-01-04] MEDS: MULTIVITAMIN (BEROCCA) TABLET PO SCH (10:10)
[2019-01-04] MEDS: metFORMIN 500 MG TABLET PO SCH ×2 (10:10→17:02)
[2019-01-04] MEDS: predniSONE 20 MG TABLET PO SCH (10:10)
[2019-01-04] MEDS: CYCLOBENZAPRINE 10 MG TABLET PO SCH ×3 (10:10→21:58)
[2019-01-04] MEDS: acetaZOLAMIDE 250 MG TABLET PO SCH ×2 (10:10→21:59)
[2019-01-04] MEDS: NAPROXEN 250 MG TABLET PO SCH ×2 (10:10→21:59)
[2019-01-04] MEDS: PANTOPRAZOLE 40 MG TABLET PO SCH (10:11)
[2019-01-04] MEDS: DILTIAZEM CD 180 MG CAPSULE PO SCH (10:11)
[2019-01-04] MEDS: APIXABAN 5 MG TABLET PO SCH ×2 (10:11→21:58)
[2019-01-04] MEDS: glipiZIDE 5 MG TABLET PO SCH (10:11)
[2019-01-04 10:36] LABS: Hemoglobin A1 (Alkaline) 97.7 % (96.5-98.5); Hemoglobin A2 (Alkaline) 2.3 % (1.5-3.5)
[2019-01-04 10:42] LABS: Albumin (SPE) 3.6 G/DL (3.2-5.3); Albumin (SPE) Rel % 64.8 %; Alpha 1 (SPE) 0.3 G/DL (0.1-0.4); Alpha 1 (SPE) Rel % 4.7 %; Alpha 2 (SPE) 0.7 G/DL (0.4-1.0); Alpha 2 (SPE) Rel % 13.4 %; Beta (SPE) 0.6 G/DL (0.5-1.1); Beta (SPE) Rel % 10.6 %; Gamma (SPE) 0.4 G/DL (0.7-1.7); Gamma (SPE) Rel % 6.5 %; Total Protein (Chem) 5.5 G/DL (6.4-8.3)
[2019-01-04] MEDS: FLUCONAZOLE INJ 100 MG in IV BAG 1 EACH IV SCH (12:28)
[2019-01-04] MEDS: THEOPHYLLINE ER (24 HR) 200 MG CAPSULE PO SCH (12:29)
[2019-01-04] MEDS: VANCOMYCIN INJ 1,250 MG in SODIUM CHLORIDE 0.9% 250 ML IV SCH (18:38)
[2019-01-05] MEDS: ALBUTEROL/IPRATROPIUM 3 ML NEB RESP TX SCH ×4 (00:50→21:50)
[2019-01-05] MEDS: MEROPENEM 500 MG in SODIUM CHLORIDE 0.9% 100 ML IV SCH ×2 (02:25→13:50)
[2019-01-05 05:13] LABS: Basophils % 0.1 % (0.0-0.8); Hemoglobin 8.9 GM/DL (14.0-18.0); Immature Granulocytes % 0.6 %; Immature Granulocytes Absolute 0.08 #; Lymphocytes # 0.3 10*3/uL (1.4-4.0); Mean Corpuscular HGB Conc 30.7 GM/DL (32-36); Mean Corpuscular Hemoglobin 32 PG (27-34); Mean Corpuscular Volume 103.2 FL (87-102); Mean Platelet Volume 9.5 FL (9.6-12.0); Monocytes # 0.5 10*3/uL (0.11-0.8); Monocytes % 3.5 % (1.7-12.7); Neutrophils # 12.7 10*3/uL (1.4-7.4); Neutrophils % 93.8 % (38.7-73.9); Platelet Count 286 T/CUMM (130-400); Red Blood Count 2.81 MC/CUMM (3.8-5.5); Red Cell Distribution Width 13.3 % (9.3-17.3); White Blood Count 13.6 T/CUMM (4-12)
[2019-01-05 05:40] LABS: Hypochromasia 1+; Lymphocytes 1 % (20-55); Platelet Estimate Adequate; Segmented Neutrophils 99 % (50-85); Total Cells Counted 100
[2019-01-05 05:41] LABS: Macrocytosis Slight
[2019-01-05 05:44] LABS: Calcium 8.5 MG/DL (8.5-10.1); Osmolality,Calculated 295.7 MOS/KG (273-304); Potassium 4.2 MMOL/L (3.5-5.1)
[2019-01-05] MEDS: INSULIN REGULAR 100 UNIT/ML SUBCUT SCH ×4 (07:52→21:52)
[2019-01-05] MEDS: glipiZIDE 5 MG TABLET PO SCH (07:53)
[2019-01-05] MEDS: metFORMIN 500 MG TABLET PO SCH ×2 (08:54→16:36)
[2019-01-05] MEDS: MULTIVITAMIN (BEROCCA) TABLET PO SCH (08:54)
[2019-01-05] MEDS: NAPROXEN 250 MG TABLET PO SCH ×2 (08:54→21:53)
[2019-01-05] MEDS: predniSONE 20 MG TABLET PO SCH (08:54)
[2019-01-05] MEDS: PANTOPRAZOLE 40 MG TABLET PO SCH (08:55)
[2019-01-05] MEDS: DILTIAZEM CD 180 MG CAPSULE PO SCH (08:55)
[2019-01-05] MEDS: APIXABAN 5 MG TABLET PO SCH ×2 (08:55→21:52)
[2019-01-05] MEDS: CYCLOBENZAPRINE 10 MG TABLET PO SCH ×2 (08:55→10:03)
[2019-01-05] MEDS: acetaZOLAMIDE 250 MG TABLET PO SCH ×2 (08:55→21:53)
[2019-01-05] MEDS ORDERED: CYCLOBENZAPRINE 10 MG TABLET PO PRN (09:44)
[2019-01-05] MEDS: FLUCONAZOLE INJ 100 MG in IV BAG 1 EACH IV SCH (12:36)
[2019-01-05] MEDS: THEOPHYLLINE ER (24 HR) 200 MG CAPSULE PO SCH (12:36)
[2019-01-05] MEDS: VANCOMYCIN INJ 1,250 MG in SODIUM CHLORIDE 0.9% 250 ML IV SCH (15:39)
[2019-01-06] MEDS: ALBUTEROL/IPRATROPIUM 3 ML NEB RESP TX SCH ×4 (00:24→20:09)
[2019-01-06] MEDS: MEROPENEM 500 MG in SODIUM CHLORIDE 0.9% 100 ML IV SCH ×2 (02:40→15:20)
[2019-01-06 05:56] LABS: Basophils % 0.1 % (0.0-0.8); Eosinophils # 0.1 10*3/uL (0.0-0.87); Hematocrit 32.4 VOL% (42.0-52.0); Hemoglobin 9.9 GM/DL (14.0-18.0); Immature Granulocytes % 0.9 %; Immature Granulocytes Absolute 0.12 #; Lymphocytes # 0.5 10*3/uL (1.4-4.0); Lymphocytes % 3.7 % (21.2-54.2); Mean Corpuscular HGB Conc 30.6 GM/DL (32-36); Mean Corpuscular Hemoglobin 32 PG (27-34); Mean Corpuscular Volume 103.2 FL (87-102); Mean Platelet Volume 9.6 FL (9.6-12.0); Monocytes # 0.8 10*3/uL (0.11-0.8); Monocytes % 5.7 % (1.7-12.7); Neutrophils # 11.6 10*3/uL (1.4-7.4); Neutrophils % 88.6 % (38.7-73.9); Platelet Count 308 T/CUMM (130-400); Red Blood Count 3.14 MC/CUMM (3.8-5.5); Red Cell Distribution Width 13.4 % (9.3-17.3); White Blood Count 13.1 T/CUMM (4-12)
[2019-01-06 06:24] LABS: Eosinophils 2 % (0-10); Hypochromasia 1+; Lymphocytes 3 % (20-55); Macrocytosis Slight; Ovalocytes Slight; Platelet Estimate Adequate; Segmented Neutrophils 88 % (50-85); Total Cells Counted 100
[2019-01-06 06:29] LABS: Calcium 8.4 MG/DL (8.5-10.1); Osmolality,Calculated 294.7 MOS/KG (273-304)
[2019-01-06 07:30] LABS: Immuno Free Light Chain Kappa 1.6 MG/DL (0.33-1.94); Immuno Free Light Chain Lambda 1.52 MG/DL (0.57-2.63); Immuno Free Light Chain Ratio 1.05 MG/DL (0.26-1.65)
[2019-01-06] MEDS ORDERED: traMADol 50 MG TABLET PO PRN (08:30)
[2019-01-06] MEDS: NAPROXEN 250 MG TABLET PO SCH ×2 (09:44→21:28)
[2019-01-06] MEDS: predniSONE 20 MG TABLET PO SCH (09:44)
[2019-01-06] MEDS: acetaZOLAMIDE 250 MG TABLET PO SCH ×2 (09:44→21:28)
[2019-01-06] MEDS: DILTIAZEM CD 180 MG CAPSULE PO SCH (09:44)
[2019-01-06] MEDS: MULTIVITAMIN (BEROCCA) TABLET PO SCH (09:44)
[2019-01-06] MEDS: metFORMIN 500 MG TABLET PO SCH ×2 (09:44→17:17)
[2019-01-06] MEDS: PANTOPRAZOLE 40 MG TABLET PO SCH (09:45)
[2019-01-06] MEDS: glipiZIDE 5 MG TABLET PO SCH (09:45)
[2019-01-06] MEDS: INSULIN REGULAR 100 UNIT/ML SUBCUT SCH ×4 (09:49→21:29)
[2019-01-06] MEDS: APIXABAN 5 MG TABLET PO SCH (11:42)
[2019-01-06] MEDS: THEOPHYLLINE ER (24 HR) 200 MG CAPSULE PO SCH (13:17)
[2019-01-06] MEDS: FLUCONAZOLE INJ 100 MG in IV BAG 1 EACH IV SCH (13:18)
[2019-01-06] MEDS: VANCOMYCIN INJ 1,250 MG in SODIUM CHLORIDE 0.9% 250 ML IV SCH (17:15)
[2019-01-06] MEDS: ENOXAPARIN 40 MG/0.4 ML SYRINGE SUBCUT SCH (17:18)
[2019-01-07] MEDS: ALBUTEROL/IPRATROPIUM 3 ML NEB RESP TX SCH ×4 (01:13→19:17)
[2019-01-07] MEDS: MEROPENEM 500 MG in SODIUM CHLORIDE 0.9% 100 ML IV SCH ×2 (01:15→14:30)
[2019-01-07] MEDS: VANCOMYCIN INJ 1,250 MG in SODIUM CHLORIDE 0.9% 250 ML IV SCH ×3 (01:33→15:21)
[2019-01-07 04:42] LABS: Basophils % 0.1 % (0.0-0.8); Eosinophils # 0.3 10*3/uL (0.0-0.87); Eosinophils % 2.7 % (0.00-10.9); Hematocrit 32.4 VOL% (42.0-52.0); Hemoglobin 9.8 GM/DL (14.0-18.0); Immature Granulocytes % 0.7 %; Immature Granulocytes Absolute 0.08 #; Lymphocytes # 0.7 10*3/uL (1.4-4.0); Lymphocytes % 5.8 % (21.2-54.2); Mean Corpuscular HGB Conc 30.2 GM/DL (32-36); Mean Corpuscular Hemoglobin 31 PG (27-34); Mean Corpuscular Volume 103.8 FL (87-102); Mean Platelet Volume 9.6 FL (9.6-12.0); Monocytes # 0.8 10*3/uL (0.11-0.8); Monocytes % 6.6 % (1.7-12.7); Neutrophils # 9.8 10*3/uL (1.4-7.4); Neutrophils % 84.1 % (38.7-73.9); Platelet Count 286 T/CUMM (130-400); Red Blood Count 3.12 MC/CUMM (3.8-5.5); Red Cell Distribution Width 13.3 % (9.3-17.3); White Blood Count 11.7 T/CUMM (4-12)
[2019-01-07 04:59] LABS: Calcium 8.5 MG/DL (8.5-10.1); Osmolality,Calculated 295.6 MOS/KG (273-304); Potassium 4.1 MMOL/L (3.5-5.1)
[2019-01-07] MEDS: acetaZOLAMIDE 250 MG TABLET PO SCH ×2 (09:43→21:37)
[2019-01-07] MEDS: NAPROXEN 250 MG TABLET PO SCH ×2 (09:43→21:37)
[2019-01-07] MEDS: glipiZIDE 5 MG TABLET PO SCH (09:43)
[2019-01-07] MEDS: DILTIAZEM CD 180 MG CAPSULE PO SCH (09:43)
[2019-01-07] MEDS: MULTIVITAMIN (BEROCCA) TABLET PO SCH (09:43)
[2019-01-07] MEDS: metFORMIN 500 MG TABLET PO SCH ×2 (09:43→17:47)
[2019-01-07] MEDS: PANTOPRAZOLE 40 MG TABLET PO SCH (09:44)
[2019-01-07] MEDS: INSULIN REGULAR 100 UNIT/ML SUBCUT SCH ×4 (09:44→21:37)
[2019-01-07] MEDS: predniSONE 20 MG TABLET PO SCH (09:44)
[2019-01-07] MEDS: THEOPHYLLINE ER (24 HR) 200 MG CAPSULE PO SCH (14:28)
[2019-01-07] MEDS: FLUCONAZOLE INJ 100 MG in IV BAG 1 EACH IV SCH (14:29)
[2019-01-07] MEDS: ENOXAPARIN 40 MG/0.4 ML SYRINGE SUBCUT SCH (17:43)
[2019-01-08] MEDS: ALBUTEROL/IPRATROPIUM 3 ML NEB RESP TX SCH ×4 (01:47→18:59)
[2019-01-08] MEDS: MEROPENEM 500 MG in SODIUM CHLORIDE 0.9% 100 ML IV SCH ×2 (03:03→15:37)
[2019-01-08 04:54] LABS: Basophils % 0.1 % (0.0-0.8); Eosinophils % 0.3 % (0.00-10.9); Hematocrit 33.5 VOL% (42.0-52.0); Hemoglobin 10.3 GM/DL (14.0-18.0); Immature Granulocytes % 0.6 %; Immature Granulocytes Absolute 0.07 #; Lymphocytes # 0.4 10*3/uL (1.4-4.0); Mean Corpuscular HGB Conc 30.7 GM/DL (32-36); Mean Corpuscular Hemoglobin 32 PG (27-34); Mean Corpuscular Volume 102.4 FL (87-102); Mean Platelet Volume 9.9 FL (9.6-12.0); Monocytes # 0.7 10*3/uL (0.11-0.8); Monocytes % 5.6 % (1.7-12.7); Neutrophils # 10.7 10*3/uL (1.4-7.4); Neutrophils % 90.4 % (38.7-73.9); Platelet Count 325 T/CUMM (130-400); Red Blood Count 3.27 MC/CUMM (3.8-5.5); Red Cell Distribution Width 12.9 % (9.3-17.3); White Blood Count 11.8 T/CUMM (4-12)
[2019-01-08 05:23] LABS: Eosinophils 1 % (0-10); Hypochromasia 1+; Lymphocytes 1 % (20-55); Ovalocytes Slight; Platelet Estimate Adequate; Segmented Neutrophils 95 % (50-85); Total Cells Counted 100
[2019-01-08] MEDS: VANCOMYCIN INJ 1,250 MG in SODIUM CHLORIDE 0.9% 250 ML IV SCH (05:32)
[2019-01-08 05:36] LABS: Calcium 8.7 MG/DL (8.5-10.1); Osmolality,Calculated 295.7 MOS/KG (273-304)
[2019-01-08] MEDS: glipiZIDE 5 MG TABLET PO SCH (09:52)
[2019-01-08] MEDS: predniSONE 20 MG TABLET PO SCH (09:52)
[2019-01-08] MEDS: DILTIAZEM CD 180 MG CAPSULE PO SCH (09:52)
[2019-01-08] MEDS: INSULIN REGULAR 100 UNIT/ML SUBCUT SCH ×5 (09:52→22:34)
[2019-01-08] MEDS: PANTOPRAZOLE 40 MG TABLET PO SCH (09:52)
[2019-01-08] MEDS: NAPROXEN 250 MG TABLET PO SCH ×2 (09:52→22:34)
[2019-01-08] MEDS: metFORMIN 500 MG TABLET PO SCH ×2 (09:52→16:43)
[2019-01-08] MEDS: MULTIVITAMIN (BEROCCA) TABLET PO SCH (09:52)
[2019-01-08] MEDS: acetaZOLAMIDE 250 MG TABLET PO SCH ×2 (09:53→22:34)
[2019-01-08] MEDS: THEOPHYLLINE ER (24 HR) 200 MG CAPSULE PO SCH (12:30)
[2019-01-08] MEDS: ENOXAPARIN 40 MG/0.4 ML SYRINGE SUBCUT SCH (16:43)
[2019-01-09] MEDS: ALBUTEROL/IPRATROPIUM 3 ML NEB RESP TX SCH ×4 (00:09→19:34)
[2019-01-09] MEDS: MEROPENEM 500 MG in SODIUM CHLORIDE 0.9% 100 ML IV SCH ×2 (02:51→13:54)
[2019-01-09 05:10] LABS: Basophils % 0.1 % (0.0-0.8); Eosinophils # 0.2 10*3/uL (0.0-0.87); Eosinophils % 1.6 % (0.00-10.9); Hematocrit 32.1 VOL% (42.0-52.0); Hemoglobin 9.8 GM/DL (14.0-18.0); Immature Granulocytes % 0.7 %; Immature Granulocytes Absolute 0.09 #; Lymphocytes # 0.5 10*3/uL (1.4-4.0); Lymphocytes % 4.2 % (21.2-54.2); Mean Corpuscular HGB Conc 30.5 GM/DL (32-36); Mean Corpuscular Hemoglobin 31 PG (27-34); Mean Corpuscular Volume 101.9 FL (87-102); Mean Platelet Volume 9.7 FL (9.6-12.0); Monocytes # 0.8 10*3/uL (0.11-0.8); Monocytes % 6.2 % (1.7-12.7); Neutrophils % 87.2 % (38.7-73.9); Platelet Count 331 T/CUMM (130-400); Red Blood Count 3.15 MC/CUMM (3.8-5.5); Red Cell Distribution Width 13.2 % (9.3-17.3); White Blood Count 12.7 T/CUMM (4-12)
[2019-01-09 05:25] LABS: Calcium 8.7 MG/DL (8.5-10.1); Osmolality,Calculated 299.4 MOS/KG (273-304)
[2019-01-09 06:06] LABS: Lymphocytes 6 % (20-55); Platelet Estimate Normal; Polychromasia Few; Segmented Neutrophils 92 % (50-85); Total Cells Counted 100
[2019-01-09] MEDS: INSULIN REGULAR 100 UNIT/ML SUBCUT SCH ×4 (08:32→20:46)
[2019-01-09] MEDS: MULTIVITAMIN (BEROCCA) TABLET PO SCH (09:48)
[2019-01-09] MEDS: DILTIAZEM CD 180 MG CAPSULE PO SCH (09:49)
[2019-01-09] MEDS: acetaZOLAMIDE 250 MG TABLET PO SCH ×2 (09:49→20:46)
[2019-01-09] MEDS: glipiZIDE 5 MG TABLET PO SCH (09:49)
[2019-01-09] MEDS: metFORMIN 500 MG TABLET PO SCH ×2 (09:49→16:45)
[2019-01-09] MEDS: PANTOPRAZOLE 40 MG TABLET PO SCH (09:49)
[2019-01-09] MEDS: predniSONE 20 MG TABLET PO SCH (09:49)
[2019-01-09] MEDS: NAPROXEN 250 MG TABLET PO SCH ×2 (09:49→20:46)
[2019-01-09] MEDS: FLUCONAZOLE 100 MG TABLET PO SCH (09:49)
[2019-01-09] MEDS: THEOPHYLLINE ER (24 HR) 200 MG CAPSULE PO SCH (12:18)
[2019-01-09] MEDS: ENOXAPARIN 40 MG/0.4 ML SYRINGE SUBCUT SCH (16:44)
[2019-01-09] MEDS: POLYETHYLENE GLYCOL POWDER 17 GM PACK PO SCH (16:45)
[2019-01-09] MEDS: DOCUSATE SODIUM 100 MG CAPSULE PO SCH (20:46)
[2019-01-10] MEDS: ALBUTEROL/IPRATROPIUM 3 ML NEB RESP TX SCH ×4 (00:38→19:26)
[2019-01-10] MEDS: MEROPENEM 500 MG in SODIUM CHLORIDE 0.9% 100 ML IV SCH ×2 (02:50→15:56)
[2019-01-10] MEDS: INSULIN REGULAR 100 UNIT/ML SUBCUT SCH ×4 (08:34→21:54)
[2019-01-10] MEDS: glipiZIDE 5 MG TABLET PO SCH (08:34)
[2019-01-10] MEDS: POLYETHYLENE GLYCOL POWDER 17 GM PACK PO SCH ×3 (09:40→21:54)
[2019-01-10] MEDS: MULTIVITAMIN (BEROCCA) TABLET PO SCH (09:40)
[2019-01-10] MEDS: NAPROXEN 250 MG TABLET PO SCH ×2 (09:40→21:53)
[2019-01-10] MEDS: DILTIAZEM CD 180 MG CAPSULE PO SCH (09:41)
[2019-01-10] MEDS: PANTOPRAZOLE 40 MG TABLET PO SCH (09:41)
[2019-01-10] MEDS: FLUCONAZOLE 100 MG TABLET PO SCH (09:41)
[2019-01-10] MEDS: acetaZOLAMIDE 250 MG TABLET PO SCH ×2 (09:41→21:53)
[2019-01-10] MEDS: predniSONE 20 MG TABLET PO SCH (09:41)
[2019-01-10] MEDS: metFORMIN 500 MG TABLET PO SCH ×2 (09:42→16:00)
[2019-01-10] MEDS: DOCUSATE SODIUM 100 MG CAPSULE PO SCH ×2 (09:42→21:53)
[2019-01-10] MEDS ORDERED: MAGNESIUM HYDROXIDE SUSP 30 ML UDCUP PO ONE (11:38)
[2019-01-10] MEDS: THEOPHYLLINE ER (24 HR) 200 MG CAPSULE PO SCH (12:42)
[2019-01-10] MEDS: ENOXAPARIN 40 MG/0.4 ML SYRINGE SUBCUT SCH (15:56)
[2019-01-11] MEDS: MEROPENEM 500 MG in SODIUM CHLORIDE 0.9% 100 ML IV SCH ×2 (01:10→13:27)
[2019-01-11] MEDS: ALBUTEROL/IPRATROPIUM 3 ML NEB RESP TX SCH ×3 (01:27→12:50)
[2019-01-11] MEDS: INSULIN REGULAR 100 UNIT/ML SUBCUT SCH ×4 (09:15→22:14)
[2019-01-11] MEDS ORDERED: LIDOCAINE 1% 20 ML VIAL ONE (10:23)
[2019-01-11] MEDS ORDERED: TISSUE ADHESIVE 1 EACH APPLICATOR TOP ONE (10:23)
[2019-01-11] MEDS ORDERED: methylPREDNISolone ACETATE 40 MG/1 ML VIAL ONE (10:23)
[2019-01-11] MEDS ORDERED: MIDAZOLAM 2 MG/2 ML VIAL ONE (11:48)
[2019-01-11] MEDS ORDERED: PROPOFOL 200 MG/20 ML VIAL IV ONE (11:48)
[2019-01-11] MEDS ORDERED: fentaNYL 100 MCG/2 ML VIAL ONE (11:49)
[2019-01-11] MEDS: DOCUSATE SODIUM 100 MG CAPSULE PO SCH ×2 (12:28→22:14)
[2019-01-11] MEDS: PANTOPRAZOLE 40 MG TABLET PO SCH (12:28)
[2019-01-11] MEDS: DILTIAZEM CD 180 MG CAPSULE PO SCH (12:28)
[2019-01-11] MEDS: predniSONE 20 MG TABLET PO SCH (12:28)
[2019-01-11] MEDS: THEOPHYLLINE ER (24 HR) 200 MG CAPSULE PO SCH (12:28)
[2019-01-11] MEDS: POLYETHYLENE GLYCOL POWDER 17 GM PACK PO SCH ×3 (12:28→22:14)
[2019-01-11] MEDS: MULTIVITAMIN (BEROCCA) TABLET PO SCH (12:29)
[2019-01-11] MEDS: FLUCONAZOLE 100 MG TABLET PO SCH (12:29)
[2019-01-11] MEDS: NAPROXEN 250 MG TABLET PO SCH ×2 (12:29→22:14)
[2019-01-11] MEDS: metFORMIN 500 MG TABLET PO SCH ×2 (12:29→16:13)
[2019-01-11] MEDS: glipiZIDE 5 MG TABLET PO SCH (12:29)
[2019-01-11] MEDS: acetaZOLAMIDE 250 MG TABLET PO SCH ×2 (12:29→22:14)
[2019-01-11] MEDS: ENOXAPARIN 40 MG/0.4 ML SYRINGE SUBCUT SCH (16:13)
[2019-01-11] MEDS: ACETAMINOPHEN 325 MG TABLET PO PRN (16:16)
[2019-01-12] MEDS: ALBUTEROL/IPRATROPIUM 3 ML NEB RESP TX SCH ×4 (00:05→19:50)
[2019-01-12] MEDS: MEROPENEM 500 MG in SODIUM CHLORIDE 0.9% 100 ML IV SCH ×2 (02:45→14:44)
[2019-01-12] MEDS ORDERED: MORPHINE 4 MG/1 ML VIAL IV ONE (03:06)
[2019-01-12] MEDS ORDERED: MEPERIDINE 50 MG/1 ML VIAL IM ONE (07:00)
[2019-01-12] MEDS ORDERED: PROMETHAZINE 25 MG/1 ML VIAL IM ONE (07:00)
[2019-01-12] MEDS ORDERED: LIDOCAINE 2% VISCOUS 100 ML BOTTLE SWISH/SPIT ONE (07:30)
[2019-01-12] MEDS ORDERED: LIDOCAINE 1% 20 ML VIAL MISC INJ ONE (07:30)
[2019-01-12] MEDS ORDERED: LIDOCAINE 2% 20 ML VIAL RESP TX ONE (07:30)
[2019-01-12] MEDS ORDERED: MIDAZOLAM 10 MG/2 ML VIAL IV ONE (07:30)
[2019-01-12] MEDS ORDERED: MIDAZOLAM 2 MG/2 ML VIAL ONE (08:38)
[2019-01-12] MEDS: DOCUSATE SODIUM 100 MG CAPSULE PO SCH ×2 (10:44→22:07)
[2019-01-12] MEDS: metFORMIN 500 MG TABLET PO SCH ×2 (10:45→16:40)
[2019-01-12] MEDS: DILTIAZEM CD 180 MG CAPSULE PO SCH (10:45)
[2019-01-12] MEDS: NAPROXEN 250 MG TABLET PO SCH ×2 (10:45→22:06)
[2019-01-12] MEDS: predniSONE 20 MG TABLET PO SCH (10:45)
[2019-01-12] MEDS: MULTIVITAMIN (BEROCCA) TABLET PO SCH (10:46)
[2019-01-12] MEDS: acetaZOLAMIDE 250 MG TABLET PO SCH ×2 (10:46→22:07)
[2019-01-12] MEDS: glipiZIDE 5 MG TABLET PO SCH (10:46)
[2019-01-12] MEDS: FLUCONAZOLE 100 MG TABLET PO SCH (10:46)
[2019-01-12] MEDS: PANTOPRAZOLE 40 MG TABLET PO SCH (10:46)
[2019-01-12] MEDS: POLYETHYLENE GLYCOL POWDER 17 GM PACK PO SCH ×3 (10:46→22:06)
[2019-01-12] MEDS: INSULIN REGULAR 100 UNIT/ML SUBCUT SCH ×4 (10:47→22:07)
[2019-01-12] MEDS: THEOPHYLLINE ER (24 HR) 200 MG CAPSULE PO SCH (12:22)
[2019-01-12] MEDS ORDERED: BISACODYL 10 MG SUPP RECTAL ONE (20:50)
[2019-01-13] MEDS: ALBUTEROL/IPRATROPIUM 3 ML NEB RESP TX SCH ×2 (00:19→07:25)
[2019-01-13] MEDS: MEROPENEM 500 MG in SODIUM CHLORIDE 0.9% 100 ML IV SCH (02:49)
[2019-01-13] MEDS: INSULIN REGULAR 100 UNIT/ML SUBCUT SCH ×2 (08:20→12:02)
[2019-01-13] MEDS: metFORMIN 500 MG TABLET PO SCH (09:20)
[2019-01-13] MEDS: DILTIAZEM CD 180 MG CAPSULE PO SCH (09:20)
[2019-01-13] MEDS: NAPROXEN 250 MG TABLET PO SCH (09:20)
[2019-01-13] MEDS: MULTIVITAMIN (BEROCCA) TABLET PO SCH (09:20)
[2019-01-13] MEDS: DOCUSATE SODIUM 100 MG CAPSULE PO SCH (09:20)
[2019-01-13] MEDS: glipiZIDE 5 MG TABLET PO SCH (09:22)
[2019-01-13] MEDS: predniSONE 20 MG TABLET PO SCH (09:22)
[2019-01-13] MEDS: PANTOPRAZOLE 40 MG TABLET PO SCH (09:22)
[2019-01-13] MEDS: POLYETHYLENE GLYCOL POWDER 17 GM PACK PO SCH ×2 (09:25→10:10)
[2019-01-13] MEDS: acetaZOLAMIDE 250 MG TABLET PO SCH (09:44)
[2019-01-13] MEDS: FLUCONAZOLE 100 MG TABLET PO SCH (10:10)
[2019-01-13 12:04] VITALS: BP 115/74
[2019-01-13] MEDS: THEOPHYLLINE ER (24 HR) 200 MG CAPSULE PO SCH (12:32)
== END 2019-01-13 12:44 | disposition home health service (06) | DRG 166 ==
LOC: N.ED 17:49 → N.EDINP 21:47 → SUATTDRO 21:47 → N.2E 22:11
PROVIDERS: ADMIT Hospitalist; ATTEND Internal Medicine
PROC: BRONCHB (2019-01-12 08:20)

== ENCOUNTER 2019-01-18 17:38 | Inpatient (IN) ==
[2019-01-18] MEDS ORDERED: ONDANSETRON 4 MG/2 ML VIAL IV STA (18:10)
[2019-01-18] MEDS ORDERED: ALBUTEROL/IPRATROPIUM 3 ML NEB RESP TX STA (18:10)
[2019-01-18] MEDS ORDERED: SODIUM CHLORIDE 0.9% 500 ML IV STA (18:10)
[2019-01-18] MEDS ORDERED: methylPREDNISolone SOD SUC 125 MG/2 ML VIAL IV STA (18:10)
[2019-01-18] MEDS ORDERED: CEFTAROLINE 600 MG in SODIUM CHLORIDE 0.9% 100 ML IV STA (18:12)
[2019-01-18 19:04] LABS: Basophils % 0.1 % (0.0-0.8); Hemoglobin 11.8 GM/DL (14.0-18.0); Immature Granulocytes Absolute 0.23 #; Lymphocytes # 0.2 10*3/uL (1.4-4.0); Lymphocytes % 0.9 % (21.2-54.2); Mean Corpuscular HGB Conc 31.1 GM/DL (32-36); Mean Corpuscular Hemoglobin 31 PG (27-34); Mean Corpuscular Volume 99.7 FL (87-102); Monocytes # 0.9 10*3/uL (0.11-0.8); Monocytes % 3.9 % (1.7-12.7); Neutrophils # 21.4 10*3/uL (1.4-7.4); Neutrophils % 94.1 % (38.7-73.9); Platelet Count 408 T/CUMM (130-400); Red Blood Count 3.81 MC/CUMM (3.8-5.5); Red Cell Distribution Width 13.2 % (9.3-17.3); White Blood Count 22.8 T/CUMM (4-12)
[2019-01-18 19:26] LABS: Alanine Aminotransferase 24 U/L (16-61); Albumin 2.9 G/DL (3.4-5.0); Alkaline Phosphatase 102 U/L (45-117); Aspartate Amino Transferase 16 U/L (0-37); Bilirubin,Total < 0.39 MG/DL (0.2-1.0); Blood Urea Nitrogen 75 MG/DL (7-18); Calcium 9.2 MG/DL (8.5-10.1); Glucose 289 MG/DL (74-106); Osmolality,Calculated 311.4 MOS/KG (273-304); Potassium 4.8 MMOL/L (3.5-5.1); Sodium 140 MMOL/L (136-145); Total Protein 5.9 G/DL (6.4-8.3)
[2019-01-18 20:04] LABS: INR 0.9; PT Patient Result 10.1 SECS
[2019-01-18 20:10] LABS: Hypochromasia Slight; Lymphocytes 3 % (20-55); Macrocytosis Slight; Segmented Neutrophils 92 % (50-85); Total Cells Counted 100
[2019-01-18 20:11] LABS: Platelet Estimate Adequate
[2019-01-18] MEDS ORDERED: BISACODYL 5 MG TABLET PO PRN (21:15)
[2019-01-18] MEDS ORDERED: diphenhydrAMINE CAP 25 MG CAPSULE PO PRN (21:15)
[2019-01-18] MEDS ORDERED: FUROSEMIDE 20 MG/2 ML VIAL IV STA (21:15)
[2019-01-18] MEDS ORDERED: guaiFENesin/DM ER 600-30 MG TABLET PO PRN (21:15)
[2019-01-18] MEDS ORDERED: ACETAMINOPHEN 325 MG TABLET PO PRN (21:15)
[2019-01-18] MEDS ORDERED: ONDANSETRON 4 MG/2 ML VIAL IV PRN (21:15)
[2019-01-18] MEDS ORDERED: MORPHINE 4 MG/1 ML VIAL IV PRN (21:15)
[2019-01-18] MEDS ORDERED: SODIUM CHLORIDE 0.9% 1,000 ML IV SCH (21:30)
[2019-01-18] MEDS ORDERED: VANCOMYCIN INJ 1,000 MG in SODIUM CHLORIDE 0.9% 250 ML IV SCH (21:30)
[2019-01-18 22:51] LABS: Apearance,Urine CLEAR (Clear); Bilirubin,Urine Negative (Negative); Blood, Urine Small mg/dL (Negative); Glucose,Urine (UA) 50 mg/dL (Negative); Hyaline Casts,Urine 12 /LPF (0-3); Ketones,Urine Negative (Negative); Mucus,Urine Occasional /LPF (Occasional); Nitrite,Urine Negative (Negative); Protein,Urine Negative; RBC,Urine 4 /HPF (0-4); Urine Color Yellow (Yellow); Urine Specific Gravity 1.014 (1.001-1.035); Urine Urobilinogen < 2.0 EU/DL (0.2-1.0); WBC,Urine 1 /HPF (0-6)
[2019-01-18] MEDS: PIPERACILLIN/TAZOBACTAM 3,375 MG in SODIUM CHLORIDE 0.9% 100 ML IV SCH (23:47)
[2019-01-19] MEDS: ALBUTEROL/IPRATROPIUM 3 ML NEB RESP TX SCH ×4 (00:28→20:04)
[2019-01-19 04:55] LABS: Basophils % 0.1 % (0.0-0.8); Hematocrit 33.2 VOL% (42.0-52.0); Hemoglobin 10.3 GM/DL (14.0-18.0); Immature Granulocytes % 0.9 %; Immature Granulocytes Absolute 0.16 #; Lymphocytes # 0.1 10*3/uL (1.4-4.0); Lymphocytes % 0.7 % (21.2-54.2); Mean Corpuscular Hemoglobin 31 PG (27-34); Mean Corpuscular Volume 99.7 FL (87-102); Mean Platelet Volume 10.3 FL (9.6-12.0); Monocytes # 0.1 10*3/uL (0.11-0.8); Monocytes % 0.4 % (1.7-12.7); Neutrophils # 17.7 10*3/uL (1.4-7.4); Neutrophils % 97.9 % (38.7-73.9); Platelet Count 350 T/CUMM (130-400); Red Blood Count 3.33 MC/CUMM (3.8-5.5); Red Cell Distribution Width 13.1 % (9.3-17.3); White Blood Count 18.1 T/CUMM (4-12)
[2019-01-19 05:21] LABS: Band Neutrophils 1 % (0-10); Hypochromasia 1+; Lymphocytes 2 % (20-55); Macrocytosis Slight; Nucleated Red Blood Cells 1 (0-5); Ovalocytes Slight; Platelet Estimate Adequate; Segmented Neutrophils 97 % (50-85); Total Cells Counted 100
[2019-01-19 05:24] LABS: Alanine Aminotransferase 18 U/L (16-61); Albumin 2.4 G/DL (3.4-5.0); Alkaline Phosphatase 83 U/L (45-117); Aspartate Amino Transferase 13 U/L (0-37); Bilirubin,Total < 0.39 MG/DL (0.2-1.0); Blood Urea Nitrogen 69 MG/DL (7-18); Calcium 8.2 MG/DL (8.5-10.1); Glucose 227 MG/DL (74-106); Osmolality,Calculated 301.7 MOS/KG (273-304); Potassium 4.5 MMOL/L (3.5-5.1); Sodium 138 MMOL/L (136-145); Total Protein 5.3 G/DL (6.4-8.3)
[2019-01-19] MEDS: methylPREDNISolone SOD SUC 40 MG/1 ML VIAL IV SCH ×2 (06:18→20:51)
[2019-01-19] MEDS: PIPERACILLIN/TAZOBACTAM 3,375 MG in SODIUM CHLORIDE 0.9% 100 ML IV SCH ×3 (06:19→21:00)
[2019-01-19] MEDS: INSULIN REGULAR 100 UNIT/ML SUBCUT SCH ×3 (06:19→17:13)
[2019-01-19] MEDS: VANCOMYCIN INJ 1,000 MG in SODIUM CHLORIDE 0.9% 250 ML IV SCH (09:53)
[2019-01-19] MEDS: ENOXAPARIN 40 MG/0.4 ML SYRINGE SUBCUT SCH (09:54)
[2019-01-19] MEDS: PANTOPRAZOLE 40 MG TABLET PO SCH (09:54)
[2019-01-19] MEDS ORDERED: METHOCARBAMOL 500 MG TABLET PO PRN (10:43)
[2019-01-19] MEDS: LEVOFLOXACIN INJ 750 MG in PREMIX 1 EACH IV SCH (10:58)
[2019-01-19] MEDS: THEOPHYLLINE ER (24 HR) 400 MG TABLET PO SCH (11:59)
[2019-01-19] MEDS: DILTIAZEM CD 180 MG CAPSULE PO SCH (11:59)
[2019-01-19 13:12] LABS: ABG Base Excess -4.1 MMOL/L (-2.5-2.5); ABG HCO3 24.6 MMOL/L (20-26); ABG Oxygen Saturation 97.2 % (95-100); ABG PCO2 64.4 MM HG (35-48); ABG PO2 120.3 MM HG (80-95); ABG TCO2 26.6 MMOL/L (23-27); Allen Test Positive; Pt O2 Delivery Device Other
[2019-01-19] MEDS ORDERED: FUROSEMIDE 40 MG/4 ML VIAL IV ONE (13:30)
[2019-01-19] MEDS ORDERED: DILTIAZEM 25 MG/5 ML VIAL IV ONE ×2 (13:42→13:44)
[2019-01-19] MEDS ORDERED: DILTIAZEM 30 MG TABLET PO ONE (14:00)
[2019-01-19] MEDS: acetaZOLAMIDE 250 MG TABLET PO SCH (20:53)
[2019-01-19] MEDS: DOCUSATE SODIUM 100 MG CAPSULE PO SCH (20:53)
[2019-01-19] MEDS: POLYETHYLENE GLYCOL POWDER 17 GM PACK PO SCH (20:54)
[2019-01-20] MEDS: ALBUTEROL/IPRATROPIUM 3 ML NEB RESP TX SCH ×4 (00:24→20:21)
[2019-01-20] MEDS: INSULIN REGULAR 100 UNIT/ML SUBCUT SCH ×4 (00:24→18:42)
[2019-01-20] MEDS ORDERED: ALBUTEROL/IPRATROPIUM 3 ML NEB RESP TX PRN (02:55)
[2019-01-20 04:54] LABS: Basophils # 0.1 10*3/uL (0.0-0.2); Basophils % 0.2 % (0.0-0.8); Hematocrit 36.3 VOL% (42.0-52.0); Immature Granulocytes % 1.3 %; Immature Granulocytes Absolute 0.43 #; Lymphocytes # 0.1 10*3/uL (1.4-4.0); Lymphocytes % 0.4 % (21.2-54.2); Mean Corpuscular HGB Conc 30.3 GM/DL (32-36); Mean Corpuscular Hemoglobin 31 PG (27-34); Mean Platelet Volume 10.4 FL (9.6-12.0); Monocytes # 0.9 10*3/uL (0.11-0.8); Monocytes % 2.7 % (1.7-12.7); NRBC # 0.04 10*3/uL; Neutrophils # 30.9 10*3/uL (1.4-7.4); Neutrophils % 95.4 % (38.7-73.9); Platelet Count 406 T/CUMM (130-400); Red Blood Count 3.56 MC/CUMM (3.8-5.5); Red Cell Distribution Width 12.8 % (9.3-17.3); White Blood Count 32.4 T/CUMM (4-12)
[2019-01-20 05:24] LABS: Calcium 8.3 MG/DL (8.5-10.1); Osmolality,Calculated 303.8 MOS/KG (273-304); Potassium 5.2 MMOL/L (3.5-5.1)
[2019-01-20 05:36] LABS: Lymphocytes 2 % (20-55); Nucleated Red Blood Cells 1 (0-5); Segmented Neutrophils 96 % (50-85); Total Cells Counted 100
[2019-01-20 05:37] LABS: Burr Cells Slight; Macrocytosis Slight; Ovalocytes Few
[2019-01-20] MEDS: PIPERACILLIN/TAZOBACTAM 3,375 MG in SODIUM CHLORIDE 0.9% 100 ML IV SCH ×3 (06:03→21:45)
[2019-01-20] MEDS ORDERED: ANORO INH SCH (09:00)
[2019-01-20] MEDS: PANTOPRAZOLE 40 MG TABLET PO SCH ×2 (09:44→10:15)
[2019-01-20] MEDS: ATORVASTATIN 40 MG TABLET PO SCH ×2 (09:44→10:15)
[2019-01-20] MEDS: MULTIVITAMIN (BEROCCA) TABLET PO SCH ×2 (09:44→10:14)
[2019-01-20] MEDS: DILTIAZEM CD 180 MG CAPSULE PO SCH ×2 (09:44→10:14)
[2019-01-20] MEDS: DOCUSATE SODIUM 100 MG CAPSULE PO SCH ×3 (09:44→21:47)
[2019-01-20] MEDS: ENOXAPARIN 40 MG/0.4 ML SYRINGE SUBCUT SCH (09:46)
[2019-01-20] MEDS: VANCOMYCIN INJ 1,000 MG in SODIUM CHLORIDE 0.9% 250 ML IV SCH (09:46)
[2019-01-20] MEDS: POLYETHYLENE GLYCOL POWDER 17 GM PACK PO SCH ×3 (09:46→21:46)
[2019-01-20] MEDS: methylPREDNISolone SOD SUC 40 MG/1 ML VIAL IV SCH ×2 (09:47→21:45)
[2019-01-20] MEDS: acetaZOLAMIDE 250 MG TABLET PO SCH ×3 (09:48→21:46)
[2019-01-20] MEDS: CHOLECALCIFEROL 1,000 UNIT TABLET PO SCH (10:15)
[2019-01-20] MEDS: THEOPHYLLINE ER (24 HR) 400 MG TABLET PO SCH (12:26)
[2019-01-20 13:06] LABS: ABG Base Excess -7.6 MMOL/L (-2.5-2.5); ABG HCO3 18.3 MMOL/L (20-26); ABG Oxygen Saturation 99.3 % (95-100); ABG TCO2 22.5 MMOL/L (23-27); Allen Test Positive; Pt O2 Delivery Device Other
[2019-01-20 13:11] LABS: ABG PCO2 75.2 MM HG (35-48); ABG PH 7.108 (7.35-7.45)
[2019-01-21] MEDS: INSULIN REGULAR 100 UNIT/ML SUBCUT SCH ×4 (00:34→17:50)
[2019-01-21] MEDS: ALBUTEROL/IPRATROPIUM 3 ML NEB RESP TX SCH ×4 (00:43→20:31)
[2019-01-21 03:56] LABS: Lymphocytes,Pleural Fluid 26 %; Neutrophils,Pleural Fluid 73 %; RBC,Pleural Fluid 34548 T/CUMM
[2019-01-21 04:31] LABS: ABG Base Excess -6.7 MMOL/L (-2.5-2.5); ABG HCO3 18.9 MMOL/L (20-26); ABG Oxygen Saturation 98.4 % (95-100); ABG PCO2 55.7 MM HG (35-48); ABG TCO2 20.4 MMOL/L (23-27); Allen Test Positive; Pt O2 Delivery Device BIPAP
[2019-01-21 04:47] LABS: Basophils % 0.1 % (0.0-0.8); Hemoglobin 9.3 GM/DL (14.0-18.0); Immature Granulocytes % 1.1 %; Immature Granulocytes Absolute 0.24 #; Lymphocytes # 0.1 10*3/uL (1.4-4.0); Lymphocytes % 0.6 % (21.2-54.2); Mean Corpuscular Hemoglobin 31 PG (27-34); Mean Platelet Volume 10.8 FL (9.6-12.0); Monocytes # 0.7 10*3/uL (0.11-0.8); Monocytes % 3.1 % (1.7-12.7); NRBC # 0.08 10*3/uL; Neutrophils # 20.2 10*3/uL (1.4-7.4); Neutrophils % 95.1 % (38.7-73.9); Red Cell Distribution Width 13.1 % (9.3-17.3)
[2019-01-21 05:04] LABS: Platelet Count 265 T/CUMM (130-400)
[2019-01-21 05:05] LABS: White Blood Count 21.2 T/CUMM (4-12)
[2019-01-21 05:21] LABS: Platelet Estimate Adequate; Polychromasia Few; Segmented Neutrophils 99 % (50-85); Total Cells Counted 100
[2019-01-21 05:23] LABS: Calcium 7.8 MG/DL (8.5-10.1); Osmolality,Calculated 328.1 MOS/KG (273-304); Potassium 5.4 MMOL/L (3.5-5.1)
[2019-01-21] MEDS ORDERED: SODIUM BICARBONATE 50 MEQ/50 ML SYRINGE IV ONE (05:27)
[2019-01-21] MEDS: PIPERACILLIN/TAZOBACTAM 3,375 MG in SODIUM CHLORIDE 0.9% 100 ML IV SCH ×2 (06:33→21:32)
[2019-01-21] MEDS: SODIUM CHLORIDE 0.45% 1,000 ML IV SCH (09:23)
[2019-01-21] MEDS: DILTIAZEM CD 180 MG CAPSULE PO SCH (09:24)
[2019-01-21] MEDS: POLYETHYLENE GLYCOL POWDER 17 GM PACK PO SCH ×2 (09:24→21:34)
[2019-01-21] MEDS: methylPREDNISolone SOD SUC 40 MG/1 ML VIAL IV SCH ×2 (09:24→21:29)
[2019-01-21] MEDS: MULTIVITAMIN (BEROCCA) TABLET PO SCH (09:25)
[2019-01-21] MEDS: ATORVASTATIN 40 MG TABLET PO SCH (09:25)
[2019-01-21] MEDS: CHOLECALCIFEROL 1,000 UNIT TABLET PO SCH (09:25)
[2019-01-21] MEDS: DOCUSATE SODIUM 100 MG CAPSULE PO SCH ×2 (09:25→21:32)
[2019-01-21] MEDS: ENOXAPARIN 30 MG/0.3 ML SYRINGE SUBCUT SCH (09:25)
[2019-01-21] MEDS: PANTOPRAZOLE 40 MG TABLET PO SCH (09:25)
[2019-01-21] MEDS: acetaZOLAMIDE 250 MG TABLET PO SCH ×2 (09:28→21:31)
[2019-01-21] MEDS ORDERED: DOXYCYCLINE HYCLATE INJ 200 MG, LIDOCAINE 1% INJ 20 ML in STERILE WATER INJ 40 ML INTRAPLEUR ONE (10:00)
[2019-01-21] MEDS: LEVOFLOXACIN INJ 750 MG in PREMIX 1 EACH IV SCH (11:41)
[2019-01-21] MEDS: THEOPHYLLINE ER (24 HR) 400 MG TABLET PO SCH (11:42)
[2019-01-21] MEDS: MORPHINE 4 MG/1 ML VIAL IV PRN (13:59)
[2019-01-21 16:28] LABS: Calcium 7.4 MG/DL (8.5-10.1); Osmolality,Calculated 306.5 MOS/KG (273-304); Potassium 5.1 MMOL/L (3.5-5.1)
[2019-01-22] MEDS: ALBUTEROL/IPRATROPIUM 3 ML NEB RESP TX SCH ×4 (00:41→19:40)
[2019-01-22] MEDS: INSULIN REGULAR 100 UNIT/ML SUBCUT SCH ×4 (01:09→18:19)
[2019-01-22] MEDS: SODIUM CHLORIDE 0.45% 1,000 ML IV SCH ×2 (04:27→18:19)
[2019-01-22 04:53] LABS: Basophils % 0.1 % (0.0-0.8); Hematocrit 28.2 VOL% (42.0-52.0); Hemoglobin 8.7 GM/DL (14.0-18.0); Immature Granulocytes % 1.2 %; Immature Granulocytes Absolute 0.26 #; Lymphocytes # 0.1 10*3/uL (1.4-4.0); Lymphocytes % 0.3 % (21.2-54.2); Mean Corpuscular HGB Conc 30.9 GM/DL (32-36); Mean Corpuscular Hemoglobin 31 PG (27-34); Mean Corpuscular Volume 99.3 FL (87-102); Mean Platelet Volume 10.5 FL (9.6-12.0); Monocytes # 0.4 10*3/uL (0.11-0.8); Monocytes % 2.1 % (1.7-12.7); NRBC # 0.07 10*3/uL; Neutrophils # 20.1 10*3/uL (1.4-7.4); Neutrophils % 96.3 % (38.7-73.9); Platelet Count 265 T/CUMM (130-400); Red Blood Count 2.84 MC/CUMM (3.8-5.5); Red Cell Distribution Width 13.2 % (9.3-17.3); White Blood Count 20.9 T/CUMM (4-12)
[2019-01-22 05:07] LABS: Calcium 7.5 MG/DL (8.5-10.1); Osmolality,Calculated 318.4 MOS/KG (273-304); Potassium 4.7 MMOL/L (3.5-5.1)
[2019-01-22 05:16] LABS: Lymphocytes 3 % (20-55); Platelet Estimate Normal; Segmented Neutrophils 94 % (50-85); Total Cells Counted 100
[2019-01-22 05:17] LABS: Polychromasia Few
[2019-01-22] MEDS ORDERED: DOXYCYCLINE HYCLATE INJ 200 MG, LIDOCAINE 1% INJ 20 ML in STERILE WATER INJ 40 ML INTRAPLEUR ONE (09:00)
[2019-01-22] MEDS: CHOLECALCIFEROL 1,000 UNIT TABLET PO SCH (09:53)
[2019-01-22] MEDS: DILTIAZEM CD 180 MG CAPSULE PO SCH (09:53)
[2019-01-22] MEDS: POLYETHYLENE GLYCOL POWDER 17 GM PACK PO SCH ×2 (09:54→21:12)
[2019-01-22] MEDS: MULTIVITAMIN (BEROCCA) TABLET PO SCH (09:54)
[2019-01-22] MEDS: ENOXAPARIN 30 MG/0.3 ML SYRINGE SUBCUT SCH (09:54)
[2019-01-22] MEDS: PANTOPRAZOLE 40 MG TABLET PO SCH (09:54)
[2019-01-22] MEDS: ATORVASTATIN 40 MG TABLET PO SCH (09:54)
[2019-01-22] MEDS: DOCUSATE SODIUM 100 MG CAPSULE PO SCH ×2 (09:54→21:12)
[2019-01-22] MEDS: acetaZOLAMIDE 250 MG TABLET PO SCH ×2 (09:54→21:12)
[2019-01-22] MEDS: methylPREDNISolone SOD SUC 40 MG/1 ML VIAL IV SCH ×2 (10:42→21:13)
[2019-01-22] MEDS: PIPERACILLIN/TAZOBACTAM 3,375 MG in SODIUM CHLORIDE 0.9% 100 ML IV SCH ×2 (10:44→21:13)
[2019-01-22] MEDS: THEOPHYLLINE ER (24 HR) 400 MG TABLET PO SCH (15:12)
[2019-01-22] MEDS: MORPHINE 4 MG/1 ML VIAL IV PRN (23:06)
[2019-01-23] MEDS: INSULIN REGULAR 100 UNIT/ML SUBCUT SCH ×4 (01:03→17:04)
[2019-01-23] MEDS: ALBUTEROL/IPRATROPIUM 3 ML NEB RESP TX SCH ×4 (01:50→19:43)
[2019-01-23 05:52] LABS: Basophils % 0.1 % (0.0-0.8); Hematocrit 27.1 VOL% (42.0-52.0); Hemoglobin 8.3 GM/DL (14.0-18.0); Immature Granulocytes % 1.2 %; Immature Granulocytes Absolute 0.22 #; Lymphocytes # 0.1 10*3/uL (1.4-4.0); Lymphocytes % 0.4 % (21.2-54.2); Mean Corpuscular HGB Conc 30.6 GM/DL (32-36); Mean Corpuscular Hemoglobin 31 PG (27-34); Mean Platelet Volume 10.6 FL (9.6-12.0); Monocytes # 0.4 10*3/uL (0.11-0.8); Monocytes % 2.4 % (1.7-12.7); NRBC # 0.06 10*3/uL; Neutrophils # 17.5 10*3/uL (1.4-7.4); Neutrophils % 95.9 % (38.7-73.9); Platelet Count 250 T/CUMM (130-400); Red Blood Count 2.71 MC/CUMM (3.8-5.5); Red Cell Distribution Width 13.2 % (9.3-17.3); White Blood Count 18.3 T/CUMM (4-12)
[2019-01-23 06:14] LABS: Burr Cells Slight; Calcium 7.7 MG/DL (8.5-10.1); Hypochromasia 1+; Lymphocytes 1 % (20-55); Nucleated Red Blood Cells 1 (0-5); Ovalocytes Slight; Platelet Estimate Adequate; Potassium 5.2 MMOL/L (3.5-5.1); Segmented Neutrophils 98 % (50-85); Total Cells Counted 100
[2019-01-23] MEDS: methylPREDNISolone SOD SUC 40 MG/1 ML VIAL IV SCH ×2 (09:47→21:14)
[2019-01-23] MEDS: PIPERACILLIN/TAZOBACTAM 3,375 MG in SODIUM CHLORIDE 0.9% 100 ML IV SCH ×2 (09:48→21:13)
[2019-01-23] MEDS: MULTIVITAMIN (BEROCCA) TABLET PO SCH (10:01)
[2019-01-23] MEDS: DOCUSATE SODIUM 100 MG CAPSULE PO SCH ×2 (10:01→21:07)
[2019-01-23] MEDS: DILTIAZEM CD 180 MG CAPSULE PO SCH (10:01)
[2019-01-23] MEDS: acetaZOLAMIDE 250 MG TABLET PO SCH ×2 (10:02→21:07)
[2019-01-23] MEDS: ENOXAPARIN 30 MG/0.3 ML SYRINGE SUBCUT SCH (10:02)
[2019-01-23] MEDS: POLYETHYLENE GLYCOL POWDER 17 GM PACK PO SCH ×2 (10:02→21:00)
[2019-01-23] MEDS: ATORVASTATIN 40 MG TABLET PO SCH (10:02)
[2019-01-23] MEDS: PANTOPRAZOLE 40 MG TABLET PO SCH (10:03)
[2019-01-23] MEDS: CHOLECALCIFEROL 1,000 UNIT TABLET PO SCH (10:03)
[2019-01-23] MEDS: LEVOFLOXACIN INJ 750 MG in PREMIX 1 EACH IV SCH (12:08)
[2019-01-23] MEDS: SODIUM CHLORIDE 0.45% 1,000 ML IV SCH (12:11)
[2019-01-23] MEDS: THEOPHYLLINE ER (24 HR) 400 MG TABLET PO SCH (12:13)
[2019-01-24] MEDS: INSULIN REGULAR 100 UNIT/ML SUBCUT SCH ×4 (00:42→18:17)
[2019-01-24] MEDS: SODIUM CHLORIDE 0.45% 1,000 ML IV SCH (00:45)
[2019-01-24] MEDS: ALBUTEROL/IPRATROPIUM 3 ML NEB RESP TX SCH ×4 (01:23→19:27)
[2019-01-24] MEDS: DILTIAZEM CD 180 MG CAPSULE PO SCH (08:25)
[2019-01-24] MEDS: methylPREDNISolone SOD SUC 40 MG/1 ML VIAL IV SCH ×2 (08:27→21:31)
[2019-01-24] MEDS: PIPERACILLIN/TAZOBACTAM 3,375 MG in SODIUM CHLORIDE 0.9% 100 ML IV SCH ×2 (08:29→21:31)
[2019-01-24] MEDS: ATORVASTATIN 40 MG TABLET PO SCH (08:29)
[2019-01-24] MEDS: POLYETHYLENE GLYCOL POWDER 17 GM PACK PO SCH ×2 (08:32→21:30)
[2019-01-24] MEDS: MULTIVITAMIN (BEROCCA) TABLET PO SCH (08:33)
[2019-01-24] MEDS: ENOXAPARIN 30 MG/0.3 ML SYRINGE SUBCUT SCH (08:38)
[2019-01-24] MEDS: CHOLECALCIFEROL 1,000 UNIT TABLET PO SCH (08:39)
[2019-01-24] MEDS: PANTOPRAZOLE 40 MG TABLET PO SCH (08:42)
[2019-01-24] MEDS: DOCUSATE SODIUM 100 MG CAPSULE PO SCH ×2 (08:43→21:30)
[2019-01-24] MEDS: acetaZOLAMIDE 250 MG TABLET PO SCH ×2 (08:43→21:31)
[2019-01-24] MEDS: THEOPHYLLINE ER (24 HR) 400 MG TABLET PO SCH (11:56)
[2019-01-25] MEDS: ALBUTEROL/IPRATROPIUM 3 ML NEB RESP TX SCH ×4 (00:32→19:21)
[2019-01-25] MEDS: INSULIN REGULAR 100 UNIT/ML SUBCUT SCH ×4 (00:43→17:37)
[2019-01-25 04:59] LABS: Calcium 7.9 MG/DL (8.5-10.1); Potassium 4.1 MMOL/L (3.5-5.1)
[2019-01-25] MEDS: DILTIAZEM CD 180 MG CAPSULE PO SCH (09:05)
[2019-01-25] MEDS: ATORVASTATIN 40 MG TABLET PO SCH (09:05)
[2019-01-25] MEDS: acetaZOLAMIDE 250 MG TABLET PO SCH ×2 (09:06→21:45)
[2019-01-25] MEDS: PANTOPRAZOLE 40 MG TABLET PO SCH (09:06)
[2019-01-25] MEDS: MULTIVITAMIN (BEROCCA) TABLET PO SCH (09:06)
[2019-01-25] MEDS: CHOLECALCIFEROL 1,000 UNIT TABLET PO SCH (09:06)
[2019-01-25] MEDS: methylPREDNISolone SOD SUC 40 MG/1 ML VIAL IV SCH ×2 (09:07→21:45)
[2019-01-25] MEDS: ENOXAPARIN 30 MG/0.3 ML SYRINGE SUBCUT SCH (09:09)
[2019-01-25] MEDS: PIPERACILLIN/TAZOBACTAM 3,375 MG in SODIUM CHLORIDE 0.9% 100 ML IV SCH ×2 (09:10→21:45)
[2019-01-25] MEDS: POLYETHYLENE GLYCOL POWDER 17 GM PACK PO SCH ×2 (09:11→21:45)
[2019-01-25] MEDS: DOCUSATE SODIUM 100 MG CAPSULE PO SCH ×2 (09:11→21:45)
[2019-01-25] MEDS: LEVOFLOXACIN INJ 750 MG in PREMIX 1 EACH IV SCH (11:35)
[2019-01-25] MEDS: THEOPHYLLINE ER (24 HR) 400 MG TABLET PO SCH (11:35)
[2019-01-25] MEDS: SODIUM CHLORIDE 0.45% 1,000 ML IV SCH (11:36)
[2019-01-26] MEDS: INSULIN REGULAR 100 UNIT/ML SUBCUT SCH ×4 (00:59→18:17)
[2019-01-26] MEDS: ALBUTEROL/IPRATROPIUM 3 ML NEB RESP TX SCH ×4 (02:18→19:49)
[2019-01-26 05:57] LABS: Calcium 8.3 MG/DL (8.5-10.1); Osmolality,Calculated 315.6 MOS/KG (273-304)
[2019-01-26] MEDS ORDERED: ALPRAZolam 0.25 MG TABLET PO PRN (08:57)
[2019-01-26] MEDS ORDERED: PIPERACILLIN/TAZOBACTAM 3,375 MG in SODIUM CHLORIDE 0.9% 100 ML IV SCH (09:00)
[2019-01-26] MEDS: methylPREDNISolone SOD SUC 40 MG/1 ML VIAL IV SCH (12:15)
[2019-01-26] MEDS: acetaZOLAMIDE 250 MG TABLET PO SCH ×2 (12:15→21:46)
[2019-01-26] MEDS: DILTIAZEM CD 180 MG CAPSULE PO SCH (12:16)
[2019-01-26] MEDS: THEOPHYLLINE ER (24 HR) 400 MG TABLET PO SCH (12:16)
[2019-01-26] MEDS: PANTOPRAZOLE 40 MG TABLET PO SCH (12:16)
[2019-01-26] MEDS: MULTIVITAMIN (BEROCCA) TABLET PO SCH (12:16)
[2019-01-26] MEDS: DOCUSATE SODIUM 100 MG CAPSULE PO SCH ×2 (12:16→21:47)
[2019-01-26] MEDS: POLYETHYLENE GLYCOL POWDER 17 GM PACK PO SCH ×2 (12:18→21:47)
[2019-01-26] MEDS: ENOXAPARIN 40 MG/0.4 ML SYRINGE SUBCUT SCH (12:18)
[2019-01-26] MEDS ORDERED: traZODone 50 MG TABLET PO PRN (17:34)
[2019-01-26] MEDS: SODIUM CHLORIDE 0.45% 1,000 ML IV SCH (18:12)
[2019-01-27] MEDS: ALBUTEROL/IPRATROPIUM 3 ML NEB RESP TX SCH ×4 (00:25→19:48)
[2019-01-27] MEDS: INSULIN REGULAR 100 UNIT/ML SUBCUT SCH ×4 (01:00→17:38)
[2019-01-27] MEDS: MULTIVITAMIN (BEROCCA) TABLET PO SCH (09:09)
[2019-01-27] MEDS: ENOXAPARIN 40 MG/0.4 ML SYRINGE SUBCUT SCH (09:09)
[2019-01-27] MEDS: DILTIAZEM CD 180 MG CAPSULE PO SCH (09:09)
[2019-01-27] MEDS: acetaZOLAMIDE 250 MG TABLET PO SCH ×2 (09:09→21:25)
[2019-01-27] MEDS: DOCUSATE SODIUM 100 MG CAPSULE PO SCH ×2 (09:09→21:22)
[2019-01-27] MEDS: methylPREDNISolone SOD SUC 40 MG/1 ML VIAL IV SCH (09:10)
[2019-01-27] MEDS: POLYETHYLENE GLYCOL POWDER 17 GM PACK PO SCH ×2 (09:10→21:25)
[2019-01-27] MEDS: PANTOPRAZOLE 40 MG TABLET PO SCH (09:11)
[2019-01-27] MEDS: THEOPHYLLINE ER (24 HR) 400 MG TABLET PO SCH (12:08)
[2019-01-27] MEDS: MORPHINE 4 MG/1 ML VIAL IV PRN ×2 (18:19→23:55)
[2019-01-27] MEDS: SODIUM CHLORIDE 0.45% 1,000 ML IV SCH (21:17)
[2019-01-28] MEDS: INSULIN REGULAR 100 UNIT/ML SUBCUT SCH ×3 (00:33→12:17)
[2019-01-28] MEDS: ALBUTEROL/IPRATROPIUM 3 ML NEB RESP TX SCH ×3 (05:35→12:04)
[2019-01-28] MEDS: ENOXAPARIN 40 MG/0.4 ML SYRINGE SUBCUT SCH (09:07)
[2019-01-28] MEDS: acetaZOLAMIDE 250 MG TABLET PO SCH (09:08)
[2019-01-28] MEDS: MULTIVITAMIN (BEROCCA) TABLET PO SCH (09:08)
[2019-01-28] MEDS: PANTOPRAZOLE 40 MG TABLET PO SCH (09:08)
[2019-01-28] MEDS: DILTIAZEM CD 180 MG CAPSULE PO SCH (09:08)
[2019-01-28] MEDS: methylPREDNISolone SOD SUC 40 MG/1 ML VIAL IV SCH (09:08)
[2019-01-28] MEDS: DOCUSATE SODIUM 100 MG CAPSULE PO SCH (09:08)
[2019-01-28] MEDS: POLYETHYLENE GLYCOL POWDER 17 GM PACK PO SCH (09:11)
[2019-01-28] MEDS: MORPHINE 4 MG/1 ML VIAL IV PRN (10:59)
[2019-01-28 11:27] VITALS: BP 125/68
[2019-01-28] MEDS: THEOPHYLLINE ER (24 HR) 400 MG TABLET PO SCH (12:17)
== END 2019-01-28 15:40 | disposition hospice, home (50) | DRG 180 ==
LOC: N.ED 17:38 → N.EDINP 20:16 → SUATTDRO 20:16 → N.2E 21:24 → N.ICU 21:24 → N.2E 22:43
PROVIDERS: ADMIT Internal Medicine; ATTEND Internal Medicine